=== PATIENT | male | born 1985 | race Caucasian/White ===

== ENCOUNTER → 2019-12-22 16:12 | Outpatient (CLI) | payer OTHER, SELFPAY ==
--- NOTE | ~2019-12-22 | XR_ITS ---
EXAMINATION: XR foot LT min 3V DATE: 12/22/2019 16:26 INDICATION: Left foot pain TECHNIQUE: Dorsoplantar, two oblique and lateral views of the left foot were obtained. COMPARISON: None. FINDINGS: Alignment is normal. No fracture. Mild osteoarthritis at the first metatarsophalangeal and third and fourth distal interphalangeal joints. No erosions or periosteal reaction. Small Achilles calcaneal sp ur. Soft tissues are unremarkable. No left ankle joint effusion. IMPRESSION: 1. 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 Reviewed, dictated and finalized at location A. TECHNICAL LEAD
== END ==
PROVIDERS: PCP Family Medicine; Visit Provider Physician Assistant
DX: M19.072 Primary osteoarthritis, left ankle and foot (principal)
CPT/HCPCS: 73630

== ENCOUNTER → 2020-06-05 15:00 | Outpatient (CLI) | payer OTHER, SELFPAY ==
--- NOTE | ~2020-06-05 | CT_ITS ---
EXAMINATION: CT abdomen pelvis wo con DATE: 06/05/2020 15:14 INDICATION: Right flank pain TECHNIQUE: Computed tomography (CT) of the abdomen and pelvis was performed without intravenous contr ast. The dose-length product (DLP) was 767.41 mGy-cm. Automated exposure control and iterative recons truction technique were employed. COMPARISON: 10/06/2012 FINDINGS: The lung bases are clear. The heart size is normal. The liver is diffusely low in attenuati on when compared with the spleen, consistent with hepatic steatosis. The spleen, pancreas, gallbladde r, and adrenal glands are normal. There is a 2 mm nonobstructing stone of the left kidney. No stones are present in the right kidney, ureters, or the bladder. There is no hydronephrosis or hydroureter. The appendix is normal. No pathologically enlarged abdominal or pelvic lymph nodes are identified. Th ere is no free intraperitoneal gas or evidence of bowel obstruction. IMPRESSION: 1. No CT correlate for right flank pain. No hydronephrosis or hydroureter. 2. Nonobstructing left nephrolithiasis. 3. Diffuse hepatic steatosis. Reviewed, dictated and finalized at location A.
== END ==
PROVIDERS: PCP Family Medicine; Visit Provider Physician Assistant
DX: K76.0 Fatty (change of) liver, not elsewhere classified (principal); N20.0 Calculus of kidney
CPT/HCPCS: 74176

== ENCOUNTER → 2020-12-17 11:35 | Outpatient (CLI) | payer OTHER, SELFPAY ==
--- NOTE | ~2020-12-17 | XR_ITS ---
EXAMINATION: XR chest 2V DATE: 12/17/2020 11:52 INDICATION: Anterior chest wall pain. TECHNIQUE: Frontal and lateral views of the chest were obtained. COMPARISON: Chest 2 views 11/21/2019, CT abdomen and pelvis 06/05/2020 FINDINGS: The chest demonstrates clear lungs without pneumonia, pleural effusion, or pneumothorax. Th e heart size is normal. The sternum is normal. IMPRESSION: 1. No acute cardiopulmonary disease. Reviewed, dictated and finalized at location A. OLOGY SPECIALIST
== END ==
PROVIDERS: Visit Provider Family Medicine
DX: R07.89 Other chest pain (principal)
CPT/HCPCS: 71046

== ENCOUNTER → 2021-01-25 08:22 | Outpatient (CLI) | payer OTHER, SELFPAY ==
--- NOTE | ~2021-01-25 | MM_ITS ---
MM diagnostic mammo unilat LT DATE: 01/25/2021 09:20 INDICATION: Left breast pain and swelling superiorly, extending to the axilla TECHNIQUE: Digital MLO views of each breast and cc views of left breast. COMPARISON: None FINDINGS: The breasts are almost entirely fatty. No suspicious mass, architectural distortion, malignant calcification, skin thickening or retraction. IMPRESSION: BI-RADS Category 1: Negative Reviewed, dictated and finalized at Location A. Reviewed, dictated and finalized at location A. MERY WORKER
== END ==
PROVIDERS: PCP Family Medicine; Visit Provider Nurse Practitioner Family
DX: N63.20 Unspecified lump in the left breast, unspecified quadrant (principal); N64.4 Mastodynia
CPT/HCPCS: 77065

== ENCOUNTER 2021-02-18 12:45 | Outpatient (CLI) | payer OTHER, SELFPAY ==
--- NOTE | ~2021-02-18 | US_ITS ---
EXAMINATION: US soft tissue UE LT DATE: 02/18/2021 13:19 INDICATION: Localized swelling, mass and lump at the left upper arm TECHNIQUE: Multiple grayscale and Doppler ultrasound images of the region of concern at the posterior left upper arm near the elbow were obtained. COMPARISON: None FINDINGS: There is an approximately 1.6 x 1.4 x 0.5 cm region of increased echogenicity in the superficial subc utaneous fat at the region of concern. No other abnormal masses or fluid collections identified. IMPRESSION: 1. 1.6 x 1.4 x 0.5 similar region of increased activity is seen in the subcutaneous fat which could r epresent either inflammation of normal fat or potentially a lipoma with poorly defined margins. Reviewed, dictated and finalized at location B. IMPRESSION: 1. 1.6 x 1.4 x 0.5 similar region of increased activity is seen in the subcutan eous fat which could represent either inflammation of normal fat or potentially a lipoma with poorly defined margins.
--- NOTE | ~2021-02-18 | US_ITS ---
US breast LT limited DATE: 02/18/2021 13:15 INDICATION: Breast hypertrophy, breast lump TECHNIQUE: High-resolution targeted ultrasound imaging of the left breast at area of clinical complai nt at 12:00 near nipple COMPARISON: 01/25/2021 diagnostic left mammogram FINDINGS: No suspicious mass or shadowing, cyst or other significant sonographic abnormality is ident ified at the area of complaint of left breast lump at 12:00 near the nipple. IMPRESSION: BI-RADS Category 1: Negative Reviewed, dictated and finalized at Location A. Reviewed, dictated and finalized at location A.
== END 2021-02-18 12:46 | disposition home or self-care (01) ==
PROVIDERS: PCP Family Medicine; Visit Provider Surgery
DX: N62 Hypertrophy of breast (principal); R22.32 Localized swelling, mass and lump, left upper limb
CPT/HCPCS: 76642; 76882

== ENCOUNTER 2021-05-29 15:58 | Outpatient (CLI) | payer OTHER, SELFPAY ==
--- NOTE | ~2021-05-29 | XR_ITS ---
EXAMINATION: XR abdomen/kub 1V DATE: 05/29/2021 16:26 INDICATION: Right flank pain. TECHNIQUE: A supine view of the abdomen on 2 radiographs was obtained. COMPARISON: CT abdomen and pelvis 06/05/2020 FINDINGS: There are no dilated loops of bowel. There is a 2 mm stone in left kidney. IMPRESSION: 1. 2 mm stone in left kidney. Reviewed, dictated and finalized at location A.
--- NOTE | ~2021-05-29 | XR_ITS ---
EXAMINATION: XR thoracic spine 3V EXAM DATE: 05/29/2021 16:26 INDICATION: Right flank pain. TECHNIQUE: Frontal and lateral projections of the thoracic spine as well as lateral swimmers projecti on of the upper thoracic spine for interpretation. There is no prior study for comparison. FINDINGS: There are no bony erosions identified. The vertebral bodies are aligned in the AP dimensio n. Vertebral body and disc heights are well-maintained. Paraspinal soft tissue is unremarkable. There are no osteoblastic or osteolytic lesions identified. IMPRESSION: Unremarkable XR thoracic spine 3V exam. Reviewed, dictated and finalized at location B.
[2021-05-29 17:00] LABS: Basophils Percent Auto 0.5 % (0.2-1.2); Eosinophils Absolute Auto 0.1 K/mm3 (0-0.3); Eosinophils Percent Auto 1.7 % (0-4.4); Hematocrit 39.5 % (42.0-52.0); Hemoglobin 12.7 g/dL (14.0-18.0); Immature Granulocyte Absolute 0.02 K/mm3 (0.00-0.031); Immature Granulocyte Percent A 0.3 % (0-0.5); Lymphocytes Absolute Auto 1.95 K/mm3 (0.9-3.2); Mean Corpuscular HGB Conc 32.2 g/dl (32-36); Mean Corpuscular Hemoglobin 28.8 pg (26-34); Mean Corpuscular Volume 89.6 fl (80-100); Mean Platelet Volume 9.7 fl (7.4-10.4); Monocytes Absolute Auto 0.8 K/mm3 (0.1-0.6); Monocytes Percent Auto 10.5 % (2.6-8.5); Neutrophils Absolute Auto 4.6 K/mm3 (1.3-6.7); Platelet Count Result 221 k/mm3 (150-375); Red Blood Count 4.41 M/mm3 (4.6-6.20); Red Cell Distribution Width 11.7 % (11.5-14.5); White Blood Count 7.5 K/mm3 (4.5-10.0)
[2021-05-29 17:11] LABS: Alanine Aminotransferase 57 U/L (4-50); Albumin Level 4.6 g/dL (3.5-5.1); Alkaline Phosphatase 78 U/L (38-126); Anion Gap 7 mmol/L (8-16); Aspartate Amino Transferase 32 U/L (17-59); Bilirubin,Total 0.5 mg/dL (0.2-1.3); Blood Urea Nitrogen 16 mg/dL (9-20); Calcium 9.4 mg/dL (8.4-10.2); Carbon Dioxide 27 mmol/L (22-30); Chloride 106 mmol/L (98-107); Estimated Glomerular Filt Rate > 60; Glucose 87 mg/dL (75-110); Sodium 140 mmol/L (137-145)
== END 2021-05-29 15:59 | disposition home or self-care (01) ==
LOC: ANHIMG 16:01
PROVIDERS: PCP Family Medicine; Visit Provider Nurse Practitioner Family
DX: R10.9 Unspecified abdominal pain (principal); M54.6 Pain in thoracic spine; N20.0 Calculus of kidney
CPT/HCPCS: 36415; 72072; 74018; 80053; 85025

== ENCOUNTER 2021-11-04 01:15 | Day surgery (SDC) | payer OTHER, SELFPAY ==
[2021-10-18 14:47] VITALS: BMI 26.5
--- NOTE | 2021-11-01 14:30 | PM.HPGS ---
History of Present Illness History of Present Illness Consent: Risks, benefits, and alternatives have been discussed and questions answered. Patient agrees to proceed with procedure. Chief complaint: Rectal pain, melena Narrative: Elmo Cochran is a 36 year old male who has had rectal and anal pain for the past month. He also has seen blood in the stools. He gets some relief with preparation H and tucks pads. using a suppository Provides him temporary relief for few days. often his symptoms will begin after a bowel movement and will leave him in discomfort for a few days. He does not have pain on passage of the stool. Review of Systems Review of Systems: All systems reviewed & are unremarkable except as noted in HPI and below PMFSH Past Medical History Medical History GERD (gastroesophageal reflux disease) Hepatic steatosis Hx MRSA infection Surgical History Surgical History History of incision and drainage right knee Family History Family History Father Skin cancer Acute myocardial infarction Mother Factor V inhibitor disorder Diabetes mellitus Skin cancer Social History Social History Smoking status: Never smoker Second hand tobacco smoke exposure: No Alcohol intake: never Substance use: never Substance use type: does not use Living arrangements: with family Gender identity (if verbalized by the patient): Male Sexual Orientation (if Verbalized by the Patient): Straight or Heterosexual Spiritual care concerns: No Meds Home Medications and Allergies Home Medications Medication Instructions Recorded Confirmed Type omeprazole 20 mg PO DAILY 10/18/21 11/04/21 History Allergies Allergy/AdvReac Type Severity Reaction Status Date / Time menthol Allergy Unknown Hives Verified 11/04/21 06:32 Exam Resp: Auscultation: clear to auscultation bilaterally Cardio: Rate: regular rate Rhythm: regular rhythm GI: GI Palp: Yes Soft to palpation and No Tenderness to palpation present (GI) Assessment and Plan Assessment and plan (1) Rectal bleeding: Code(s): K62.5 - Hemorrhage of anus and rectum Status: Acute Assessment and Plan: Colonoscopy with possible biopsy or polypectomy or cautery or injection of substances.
--- NOTE | 2021-11-01 18:42 | WPDANESEPPF ---
Anes - Initial Pre Proc Eval Procedure: Operation Date: 11/04/21 08:00 Proposed Procedures p Colonoscopy - Bright Meyer MD Date/Time: 11/01/21 18:42 Surgeon: Bright Meyer MD Pre Op Diagnosis: Rectal pain, melena Patient Data Age: 36 Gender: M Height: 1.78 m Weight: 84 kg Allergies Allergy/AdvReac Type Severity Reaction Status Date / Time menthol Allergy Unknown Hives Verified 11/04/21 06:32 Home Medications Medication Instructions Recorded Confirmed Type omeprazole 20 mg PO DAILY 10/18/21 11/04/21 History Patient hx anesthesia problems: none Family hx anesthesia problems: none Results Review: All pre-operative results and documents have been reviewed as part of the pre-operative evaluation. [facility] Past Medical History Medical History GERD (gastroesophageal reflux disease) Hepatic steatosis Hx MRSA infection Surgical History Surgical History History of incision and drainage right knee Family History Family History Father Skin cancer Acute myocardial infarction Mother Factor V inhibitor disorder Diabetes mellitus Skin cancer Social History Social History Smoking status: Never smoker Second hand tobacco smoke exposure: No Alcohol intake: never Substance use: never Substance use type: does not use Living arrangements: with family Gender identity (if verbalized by the patient): Male Sexual Orientation (if Verbalized by the Patient): Straight or Heterosexual Spiritual care concerns: No Anes - Eval Final PreProcedure Day of Procedure 11/01/21 18:42 Patient weight: overweight Heart: regular rate and rhythm Lungs: clear to auscultation and normal air movement Airway: Mallampati scale class II Neurological: alert and oriented Last oral intake: >/= 8 hours ASA classification: III Emergent: no Anesthetic plan: proceed Anesthesia type and monitoring: general GIVS and standard monitoring Results Review: All pre-operative results and documents have been reviewed as part of the pre-operative evaluation. Informed Consent: The patient's anesthetic plan and its attendant risks and benefits were discussed with the patient/family/POA. Questions were solicited and answers provided to the satisfaction of the patient/family/POA.
[2021-11-04 06:33] VITALS: BP 108/78; PULSE 81; RESP 18; TEMP 36.6; O2SAT 99
[2021-11-04] MEDS: LACTATED RINGERS 1,000 ML 150 ML IV CONT (06:37)
[2021-11-04 08:14] VITALS: BP 113/73; PULSE 78; RESP 14; O2SAT 96
[2021-11-04 08:24] VITALS: BP 107/69; PULSE 73; RESP 14; O2SAT 98
[2021-11-04 08:34] VITALS: BP 111/76; PULSE 62; RESP 14; O2SAT 98
== END 2021-11-04 08:41 | disposition home or self-care (01) ==
PROVIDERS: PCP Family Medicine; Visit Provider Internal Medicine Gastroenterology
PROC: 0DJD8ZZ Inspection of Lower Intestinal Tract, Via Natural or Artificial Opening Endoscopic (ICD-10-PCS; CPT 45378; principal; 2021-11-04 08:00)
DX: K92.1 Melena (principal); K21.9 Gastro-esophageal reflux disease without esophagitis; D12.3 Benign neoplasm of transverse colon
CPT/HCPCS: 45385; 45380; 88305; J2704; J7120

== ENCOUNTER 2022-06-26 13:56 | Outpatient (CLI) | payer OTHER, SELFPAY ==
--- NOTE | ~2022-06-26 | CT_ITS ---
EXAMINATION: CT soft tissue neck w con DATE: 06/26/2022 14:23 INDICATION: Left neck mass. TECHNIQUE: Computed tomography (CT) of the neck was performed with 75 mL Omnipaque-350 intravenous co ntrast. Automated exposure control and iterative reconstruction technique were employed. The dose-vanessa gth product was 557.79 mGy-cm. COMPARISON: None FINDINGS: There is a skin marker at left lateral aspect of the neck. There are no pathologically enla rged lymph nodes. The cervical carotid arteries are normal. There is mild mucosal thickening in the p aranasal sinuses. The mastoid air cells are normal. The orbits are normal. There is mild cervical spo ndylosis. IMPRESSION: 1. No abnormal neck mass or lymphadenopathy. Reviewed, dictated and finalized at location A.
== END 2022-06-26 13:57 | disposition home or self-care (01) ==
PROVIDERS: PCP Family Medicine; Visit Provider Family Medicine
DX: R22.1 Localized swelling, mass and lump, neck (principal)
CPT/HCPCS: 70491; Q9967

== ENCOUNTER 2022-09-23 16:49 | Outpatient (CLI) | payer OTHER, SELFPAY ==
--- NOTE | ~2022-09-23 | XR_ITS ---
EXAMINATION: XR cervical spine min 6V DATE: 09/23/2022 17:15 INDICATION: Neck pain. TECHNIQUE: 6 views of cervical spine were obtained. COMPARISON: CT neck 06/26/2022 FINDINGS: There is mild kyphosis of lower cervical spine. Vertebral body heights are normal. Interver tebral disc heights are normal. There is mild bilateral uncovertebral joint osteoarthritis at C5-C6 a nd C6-C7. There is multilevel mild facet joint osteoarthritis. No neural foraminal stenosis or centra l canal stenosis. No prevertebral soft tissue swelling. IMPRESSION: 1. Mild cervical spondylosis. Reviewed, dictated and finalized at location A. OTYPE MACHINIST
== END 2022-09-23 16:50 | disposition home or self-care (01) ==
PROVIDERS: PCP Family Medicine; Visit Provider Physician Assistant
DX: M54.2 Cervicalgia (principal); M43.02 Spondylolysis, cervical region
CPT/HCPCS: 72052

== ENCOUNTER 2023-01-27 12:27 | Outpatient (CLI) | payer OTHER, SELFPAY ==
--- NOTE | ~2023-01-27 | US_ITS ---
EXAMINATION: US scrotum doppler DATE: 01/27/2023 13:22 INDICATION: N50.812 - Left testicular pain . TECHNIQUE: Grayscale and Doppler ultrasound images of the testes were obtained. COMPARISON: None.. FINDINGS: The right testis measures 3.1 x 3.1 x 1.9 cm. The left testis measures 3.8 x 2.6 x 1.8 cm. No testicular mass. There is normal vascular flow to both testes. The left epididymis contains a 1 cm hypoechoic, avascular area which may represent an epididymal cyst. The right epididymis is normal wi th normal vascular flow. Small left hydrocele. No varicoceles. IMPRESSION: Small left epididymal cyst. Small left hydrocele. Otherwise normal scrotal ultrasound findings. Reviewed, dictated and finalized at location K. IMPRESSION: Small left epididymal cyst. Small left hydrocele. Otherwise normal scrotal ultr asound findings.
== END 2023-01-27 12:28 | disposition home or self-care (01) ==
PROVIDERS: PCP Family Medicine; Visit Provider Physician Assistant
DX: N50.89 Other specified disorders of the male genital organs (principal); N50.812 Left testicular pain; N50.3 Cyst of epididymis; N43.3 Hydrocele, unspecified
CPT/HCPCS: 76870; 93976

== ENCOUNTER 2023-09-15 01:27 | Day surgery (SDC) | payer OTHER, SELFPAY ==
--- NOTE | 2023-09-07 17:03 | PC.NURSE ---
Report to the Outpatient Waiting Room, entrance under the green pavilion located off [facility], at time 0600 on date 09/15/23. Planned Procedure Time: 0730. Time changes happen often and if your time is changed the preop area will call you the afternoon before. - You and your visitor will be asked to self-screen and do not enter if you have any COVID symptoms. - A mask is optional within the hospital at this time. Patients may have clear liquids (water, carbonated beverages, clear teas, apple juice) until 3 hours prior to surgery with a maximum of 20 ounces. - No food from midnight until time of surgery - Infants may have breast milk until 4 hours before surgery, formula 6 hours prior to surgery. - Children will be allowed to drink immediately following surgery. If applicable, please bring a bottle or sippy cup to assist with drinking. Juice, water, soda, and popsicles are readily available. For infants on formula, please bring formula the day of surgery. Pacifiers are allowed. Take the following medications with a SIP of water the morning of surgery: NONE DO NOT STOP ANY OF YOUR OTHER PRESCRIPTION MEDICATIONS PRIOR TO SURGERY ?EXCEPT THE FOLLOWING Medications to discontinue per physician OMPERAZOLE Date to take last dose 09/14/23 Please no make-up, nail yi, hairspray, perfume, deodorant, or body powder the day of surgery. No jewelry (including any body piercings) or valuables the day of surgery, leave them at home. Please take a shower or bath the night before, or the morning of, surgery with an antibacterial soap. Wear comfortable, loose fitting clothing. Children are encouraged to wear pajamas. - Jewelry must be removed prior to entering the operating room. Rings and piercings that are not removed may be cut off. - The hospital will not accept responsibility for valuables. - Please leave all valuables, including medications, at home the day of surgery. If you are going home after surgery, a licensed garbage collector driver must drive you home. - NO public transportation without another adult if you receive anesthesia. - We recommend that an adult stay with you for 24 hours following discharge. - We also recommend that you do not drive, make important decision, drink alcoholic beverages, or take any drugs that were not prescribed by your health care provider for at least 24 hours after your discharge time. For Pediatric surgeries, we recommend two adults accompany the child home. Follow any additional instructions given to you from your surgeon. If you or anyone in your household have experienced Covid symptoms in the past week, please notify your surgeon or the nurse liaison at the phone number below for possible testing. Telephone instructions given to PATIENT- REX LARA and asked if any additional questions and then verbalized understanding. Patient advised to call surgeon office or pre surgery nurse liaison [phone] if any additional questions.
[2023-09-07 17:09] VITALS: BMI 25.9
--- NOTE | 2023-09-14 17:19 | PM.IMHP ---
H&P: HPI History of Present Illness Date/Time: 09/14/23 17:19 Chief Complaint: recurrent tonsillitis adenoid hypertrophy tonsil stones halitosis snoring Narrative: planned procedure Review of Systems Review of Systems: All systems reviewed & are unremarkable except as noted in HPI and below PMFSH Past Medical History Medical History GERD (gastroesophageal reflux disease) Hepatic steatosis Hx MRSA infection Surgical History Surgical History History of incision and drainage right knee Family History Family History Father Skin cancer Acute myocardial infarction Mother Factor V inhibitor disorder Diabetes mellitus Skin cancer Social History Social History (Updated 08/10/23 @ 12:10 by Rosa Denson CMA) Smoking status: Never smoker Second hand tobacco smoke exposure: No Alcohol intake: never Substance use: never Substance use type: does not use Lack of Transportation: No Lack of Food: Never True Current Housing: I Have Housing Concerned About Future Housing: No Difficulty Paying Gas/Electric Bills: No Difficulty Paying for Meds: No Currently Unemployed: No Education: High School Diploma/GED Difficulty w/ Childcare or Family Care: No Living arrangements: with family Occupation/Education: occupation Gender identity (if verbalized by the patient): Male Sexual Orientation (if Verbalized by the Patient): Straight or Heterosexual Spiritual care concerns: No Meds Home Medications and Allergies Home Medications Medication Instructions Recorded Confirmed Type omeprazole 20 mg capsule,delayed 20 mg PO DAILY 10/18/21 09/07/23 History release Allergies Allergy/AdvReac Type Severity Reaction Status Date / Time menthol Allergy Unknown Hives Verified 09/07/23 16:54 Exam Narrative: chronic appearing tonsils tonsil stones adenoid hypertrophy Assessment and Plan Assessment and plan (1) Tonsil stone: Code(s): J35.8 - Other chronic diseases of tonsils and adenoids Status: Acute Assessment and Plan: ?Plan OR tonsillectomy adenoidectomy risks were discussed including bleeding infection damage to surrounding structures damage to any structure above the clavicles by myself damage to any structure during the induction and maintenance of anesthesia including vocal cord paralysis.? Postoperative bleeding 3-5% risk inherent risk of narcotic use the need for time off work time off school.? Change in swallow change in taste which could be permanent.? Patient voiced understanding of these risks and agreed. (2) Adenoid hypertrophy: Code(s): J35.2 - Hypertrophy of adenoids Status: Acute (3) Recurrent tonsillitis: Code(s): J03.91 - Acute recurrent tonsillitis, unspecified Status: Acute
[2023-09-15] VITALS (14 sets, daily range): BP systolic 111–138; BP diastolic 63–93; PULSE 56–102; RESP 12–24; TEMP 35.9–36.7; O2SAT 96–100
[2023-09-15] MEDS: ACETAMINOPHEN 500 MG TABLET 1000 MG PO (07:00)
[2023-09-15] MEDS: LACTATED RINGERS 1,000 ML 30 ML IV CONT ×2 (07:00→10:28)
--- NOTE | 2023-09-15 07:16 | WPDHPUPDATE1 ---
History and Physical Update Update Date/Time: 09/15/23 07:16 History and Physical has been reviewed, including an updated exam of the patient. There are NO changes in the patient's condition. Risks, benefits, and alternatives have been discussed and questions answered. Patient agrees to proceed with procedure.
[2023-09-15 07:19] LABS: Anion Gap 3 mmol/L (8-16); Blood Urea Nitrogen 14 mg/dL (9-20); Calcium 9.3 mg/dL (8.4-10.2); Carbon Dioxide 31 mmol/L (22-30); Chloride 107 mmol/L (98-107); Estimated CRCL calculation 107 ml/min; Estimated Glomerular Filt Rate > 60; Glucose 100 mg/dL (65-110); Potassium 4.3 mmol/L (3.4-5.0); Sodium 141 mmol/L (137-145)
[2023-09-15 07:31] LABS: INR 0.9; Prothrombin Time 12.7 Seconds (11.1-14.7)
[2023-09-15 07:32] LABS: Partial Thromboplastin Time 26.9 SECONDS (22.3-36.8)
--- NOTE | 2023-09-15 08:46 | WPDANESEPPF ---
Anes - Initial Pre Proc Eval Procedure: Operation Date: 09/15/23 08:15 Proposed Procedures p Tonsillectomy And Adenoidectomy - Xavier Caputo MD Date/Time: 09/15/23 08:46 Surgeon: Xavier Caputo MD Pre Op Diagnosis: tonsil stones,snoring,adenoid hypertrophy, tonsill Patient Data Age: 38 Gender: M Height: 1.75 m Weight: 79.32 kg Last Vital Signs Temp 36.3 C L 09/15/23 07:00 Pulse 60 09/15/23 07:00 Resp 14 09/15/23 07:00 BP 113/63 09/15/23 07:00 Pulse Ox 100 09/15/23 07:00 O2 Del Method Room Air 09/15/23 07:00 Allergies Allergy/AdvReac Type Severity Reaction Status Date / Time menthol Allergy Unknown Hives Verified 09/15/23 08:05 Home Medications Medication Instructions Recorded Confirmed Type omeprazole 20 mg capsule,delayed 20 mg PO DAILY 10/18/21 09/07/23 History release Laboratory Tests 09/15/23 07:02 PT 12.7 Seconds (11.1-14.7) INR 0.9 APTT 26.9 SECONDS (22.3-36.8) Sodium 141 mmol/L (137-145) Potassium 4.3 mmol/L (3.4-5.0) Chloride 107 mmol/L (98-107) Carbon Dioxide 31 H mmol/L (22-30) Anion Gap 3 L mmol/L (8-16) BUN 14 mg/dL (9-20) Creatinine 0.80 mg/dL (0.7-1.3) Estim Creat Clear Calc 107 ml/min Estimated GFR > 60 (59 - ) Glucose 100 mg/dL (65-110) Calcium 9.3 mg/dL (8.4-10.2) Patient hx anesthesia problems: none Family hx anesthesia problems: none Results Review: All pre-operative results and documents have been reviewed as part of the pre-operative evaluation. [facility] Past Medical History Medical History GERD (gastroesophageal reflux disease) Hepatic steatosis Hx MRSA infection Surgical History Surgical History History of incision and drainage right knee Family History Family History Father Skin cancer Acute myocardial infarction Mother Factor V inhibitor disorder Diabetes mellitus Skin cancer Social History Social History Smoking status: Never smoker Second hand tobacco smoke exposure: No Alcohol intake: never Substance use: never Substance use type: does not use Lack of Transportation: No Lack of Food: Never True Current Housing: I Have Housing Concerned About Future Housing: No Difficulty Paying Gas/Electric Bills: No Difficulty Paying for Meds: No Currently Unemployed: No Education: High School Diploma/GED Difficulty w/ Childcare or Family Care: No Living arrangements: with family Occupation/Education: occupation Gender identity (if verbalized by the patient): Male Sexual Orientation (if Verbalized by the Patient): Straight or Heterosexual Spiritual care concerns: No Anes - Eval Final PreProcedure Day of Procedure 09/15/23 08:46 Patient weight: normal Heart: regular rate and rhythm Lungs: clear to auscultation Airway: Mallampati scale class 1 Neurological: alert and oriented Last oral intake: >/= 8 hours ASA classification: II Emergent: no Anesthetic plan: proceed Anesthesia type and monitoring: general ETT and standard monitoring Results Review: All pre-operative results and documents have been reviewed as part of the pre-operative evaluation. Informed Consent: The patient's anesthetic plan and its attendant risks and benefits were discussed with the patient/family/POA. Questions were solicited and answers provided to the satisfaction of the patient/family/POA.
--- NOTE | 2023-09-15 09:58 | W.PM.PROC2 ---
Procedure Note - Detailed Date of Procedure 09/15/23 Pre-op Diagnosis tonsil stones, tonsillitis recurrent Post-op Diagnosis Same Procedure Performed Tonsillectomy Surgeon Xavier Caputo MD Anesthesia General Indications See above Findings Really scarred and chronic appearing tonsils lots stones. Adenoids essentially absent. Minimal bleeding. Description of Procedure Patient identified consent verified preop. Patient brought to the operating room. Time-out performed. General anesthesia induced endotracheal tube secured airway. Patient prepped draped positioned procedure confirm 2nd time-out performed. McIvor mouth gag inserted into very small mouth opened tonsils described above. They were removed bilaterally in the extracapsular plane using Bovie electrocautery setting of 8. Any bleeding was controlled Bovie suction electrocautery setting of 10 and bipolar to setting of 10. In between tonsils the McIvor mouth gag was lowered to allow blood flow return to the tongue. After the tonsillectomies were completed McIvor mouth gag was lowered reopened reveal no further bleeding. Red rubber catheter was then inserted adenoid pad adenoid pad viewed non-existent. Red rubber catheters removed. The tonsillar fossa were again examined no bleeding. McIvor mouth gag removed. The patient given Anesthesiology. I performed all dictated portions procedure. No complications. Patient is taken to PACU. Blood loss 2 cc. Estimated Blood Loss 2 Drains No Packing No Pathology Yes Complications No immediate complications Condition Stable Disposition PACU [facility] Billing Surgery - Charge Forward: Surgery Billing
[2023-09-15] MEDS: ONDANSETRON INJ 4 MG/2 ML VIAL IV PUSH (10:25)
[2023-09-15] MEDS: PROMETHAZINE HCL 25 MG/ML AMPUL 12.5 MG IV PUSH (10:49)
[2023-09-15] MEDS: oxyCODONE (*CRX) 5 MG/5 ML ORAL SOLN IR PO (13:16)
== END 2023-09-15 13:42 | disposition home or self-care (01) ==
PROVIDERS: Anesthesiology; PCP Family Medicine; Visit Provider Otolaryngology
PROC: (CPT 42826; principal; 2023-09-15 08:15)
DX: J35.01 Chronic tonsillitis (principal); A42.89 Other forms of actinomycosis; J35.8 Other chronic diseases of tonsils and adenoids; K21.9 Gastro-esophageal reflux disease without esophagitis; R06.83 Snoring
CPT/HCPCS: 42826; 36415; 80048; 85610; 85730; 88304; A9270; J0330; J1100; J2250; J2405; J2550; J2704; J3010; J7120

== ENCOUNTER 2023-11-06 13:31 | Outpatient (CLI) | payer OTHER, SELFPAY ==
--- NOTE | ~2023-11-06 | XR_ITS ---
XR chest 2V DATE: 11/06/2023 13:39 INDICATION: Cough TECHNIQUE: 2 views COMPARISON: None FINDINGS: Normal heart size. No hilar or mediastinal enlargement. No pulmonary infiltrate or consolidation, p ulmonary vascular congestion or pleural effusion or pneumothorax. IMPRESSION: Negative Reviewed, dictated and finalized at location A. ING OPERATOR IMPRESSION: Negative
== END 2023-11-06 13:32 ==
PROVIDERS: PCP Physician Assistant; Visit Provider Physician Assistant
DX: R05.9 Cough, unspecified (principal)
CPT/HCPCS: 71046

== ENCOUNTER 2024-02-19 17:03 | Outpatient (CLI) | payer OTHER, SELFPAY ==
--- NOTE | ~2024-02-19 | XR_ITS ---
EXAM: XR shoulder RT min 2V DATE: 02/19/2024 17:28 HISTORY: M25.511 - Pain in right shoulder CHRONIC X 1 YR AFTER . COMPARISON: None available. FINDINGS: Normal mineralization. No fracture or dislocation. No lytic or blastic lesion. Joint space s are maintained. No erosion or periosteal change. Soft tissues within normal limits. IMPRESSION: Normal right shoulder radiograph findings. Reviewed, dictated and finalized at location K.
== END 2024-02-19 17:04 | disposition home or self-care (01) ==
LOC: ANHIMG 17:06
PROVIDERS: PCP Family Medicine; Visit Provider Physician Assistant
DX: M25.511 Pain in right shoulder (principal)
CPT/HCPCS: 73030

== ENCOUNTER 2024-02-22 10:53 | Outpatient (CLI) | payer OTHER, SELFPAY ==
--- NOTE | ~2024-02-22 | US_ITS ---
EXAMINATION: US soft tissue upper back DATE: 02/22/2024 12:22 INDICATION: Disorder of the skin and subcutaneous tissue. Lump on back. TECHNIQUE: Multiple grayscale and Doppler ultrasound images of the upper back were obtained. COMPARISON: None FINDINGS: In the upper back, there is a 10 x 5 x 7 mm hypoechoic subcutaneous mass without internal v ascular flow. IMPRESSION: 1. 10 mm subcutaneous mass in the upper back. This finding is most likely a sebaceous cyst. Benign or malignant neoplasm is not excluded. Reviewed, dictated and finalized at location A. IMPRESSION: 1. 10 mm subcutaneous mass in the upper back. This finding is most likely a mala aceous cyst. Benign or malignant neoplasm is not excluded.
== END 2024-02-22 10:54 | disposition home or self-care (01) ==
PROVIDERS: PCP Family Medicine; Visit Provider Physician Assistant
DX: R22.2 Localized swelling, mass and lump, trunk (principal)
CPT/HCPCS: 76604

== ENCOUNTER 2024-02-29 15:56 | Outpatient (CLI) | payer OTHER, SELFPAY ==
--- NOTE | ~2024-02-29 | CT_ITS ---
EXAMINATION: CT abdomen pelvis wo con DATE: 02/29/2024 16:17 INDICATION: Unspecified abdominal pain. TECHNIQUE: Computed tomography (CT) of the abdomen and pelvis was performed without intravenous contr ast. Automated exposure control and iterative reconstruction technique were employed. The dose-length product was 398.16 mGy-cm. COMPARISON: CT abdomen and pelvis 06/05/2020 FINDINGS: The visualized portions of the lung bases are clear without pneumonia or pleural effusion. The heart size is normal. No pericardial effusion. The liver, gallbladder, spleen, pancreas, adrenal glands, and right kidney are normal. There is a 3 mm stone in left kidney. There are no dilated loops of bowel. The appendix is normal. There are no pathologically enlarged lymph nodes. There is no free intraperitoneal fluid. There is a left inguinal hernia containing fat. There is mild lumbar spondylo sis. IMPRESSION: 1. Left inguinal hernia containing fat. Reviewed, dictated and finalized at location E.
== END 2024-02-29 15:57 | disposition home or self-care (01) ==
LOC: ANHIMG 15:57
PROVIDERS: PCP Family Medicine; Visit Provider Physician Assistant Medical
DX: K40.90 Unilateral inguinal hernia, without obstruction or gangrene, not specified as recurrent (principal); R31.9 Hematuria, unspecified
CPT/HCPCS: 74176

== ENCOUNTER 2024-04-14 00:39 | Day surgery (SDC) | payer OTHER, SELFPAY ==
[2024-04-05 13:01] VITALS: BMI 24.7
--- NOTE | 2024-04-05 13:05 | PC.NURSE ---
Report to the Outpatient Waiting Room, entrance under the green pavilion located off [facility], at time _1000_ on date _[id number]_. Planned Procedure Time: _1200_. Time changes happen often and if your time is changed the preop area will call you the afternoon before. - You and your visitor will be asked to self-screen and do not enter if you have any COVID symptoms. - A mask is optional within the hospital at this time. Patients may have clear liquids (water, carbonated beverages, clear teas, apple juice) until 3 hours prior to surgery with a maximum of 20 ounces. - No food from midnight until time of surgery Take the following medications with a SIP of water the morning of surgery: ___None DO NOT STOP ANY OF YOUR OTHER PRESCRIPTION MEDICATIONS PRIOR TO SURGERY ?EXCEPT THE FOLLOWING Medications to discontinue per physician None Date to take last dose Please no make-up, nail sammarinese, hairspray, perfume, deodorant, or body powder the day of surgery. No jewelry (including any body piercings) or valuables the day of surgery, leave them at home. Please take a shower or bath the night before, or the morning of, surgery with an antibacterial soap. Wear comfortable, loose fitting clothing. - Jewelry must be removed prior to entering the operating room. Rings and piercings that are not removed may be cut off. - The hospital will not accept responsibility for valuables. - Please leave all valuables, including medications, at home the day of surgery. If you are going home after surgery, a licensed fork truck driver must drive you home. - NO public transportation without another adult if you receive anesthesia. - We recommend that an adult stay with you for 24 hours following discharge. - We also recommend that you do not drive, make important decision, drink alcoholic beverages, or take any drugs that were not prescribed by your health care provider for at least 24 hours after your discharge time. Follow any additional instructions given to you from your surgeon. If you or anyone in your household have experienced Covid symptoms in the past week, please notify your surgeon or the nurse liaison at the phone number below for possible testing. Telephone instructions given to __Michael__and asked if any additional questions and then verbalized understanding. Patient advised to call surgeon office or pre surgery nurse liaison [phone] if any additional questions.
[2024-04-14 10:05] VITALS: BP 99/66; PULSE 70; RESP 18; TEMP 36.4; O2SAT 97
[2024-04-14 10:20] VITALS: BMI 25.0
[2024-04-14] MEDS: LACTATED RINGERS 1,000 ML 30 ML IV CONT (10:30)
--- NOTE | 2024-04-14 11:07 | P.PNAN_ITS ---
Anes - Initial Pre Proc Eval Procedure: Operation Date: 04/14/24 12:00 Proposed Procedures p Excision Skin Cyst of Back - Mario Reynolds MD Date/Time: 04/14/24 11:07 Surgeon: Mario Reynolds MD Pre Op Diagnosis: Skin Cyst of Back 1.5 cm Patient Data Age: 39 Gender: M Height: 1.75 m Weight: 76.7 kg Last Vital Signs Temp 97.6 F 04/14/24 10:05 Pulse 70 04/14/24 10:05 Resp 18 04/14/24 10:05 BP 99/66 L 04/14/24 10:05 Pulse Ox 97 04/14/24 10:05 O2 Del Method Room Air 04/14/24 10:05 Allergies Allergy/AdvReac Type Severity Reaction Status Date / Time menthol Allergy Unknown Hives Verified 04/14/24 10:38 Home Medications Medication Instructions Recorded Confirmed Type omeprazole 20 mg capsule,delayed 20 mg PO DAILY #90 caps 02/24/24 04/13/24 Rx release Patient hx anesthesia problems: none Family hx anesthesia problems: none Results Review: All pre-operative results and documents have been reviewed as part of the pre- operative evaluation. [facility] Past Medical History Medical History GERD (gastroesophageal reflux disease) Hepatic steatosis Hx MRSA infection Surgical History Surgical History History of incision and drainage right knee History of tonsillectomy Family History Family History Father Skin cancer Acute myocardial infarction Mother Factor V inhibitor disorder Diabetes mellitus Skin cancer Social History Social History Smoking status: Never smoker Second hand tobacco smoke exposure: No Alcohol intake: never Substance use: never Substance use type: does not use Do You Feel Safe in your Home?: Yes Lack of Transportation: No Lack of Food: Never True Current Housing: I Have Housing Concerned About Future Housing: No Difficulty Paying Gas/Electric Bills: No Difficulty Paying for Meds: No Currently Unemployed: No Education: High School Diploma/GED Difficulty w/ Childcare or Family Care: No Living arrangements: with family Occupation/Education: occupation Gender identity (if verbalized by the patient): Male Sexual Orientation (if Verbalized by the Patient): Straight or Heterosexual Spiritual care concerns: No Anes - Eval Final PreProcedure Day of Procedure 04/14/24 11:07 Patient weight: normal Heart: regular rate and rhythm Lungs: clear to auscultation Airway: Mallampati scale class II Neurological: alert and oriented Last oral intake: >/= 8 hours ASA classification: II Emergent: no Anesthetic plan: proceed Anesthesia type and monitoring: general GIVS and standard monitoring Results Review: All pre-operative results and documents have been reviewed as part of the pre- operative evaluation. Informed Consent: The patient's anesthetic plan and its attendant risks and benefits were discussed with the patient/family/POA. Questions were solicited and answers provided to the satisfaction of the patient/family/POA.
--- NOTE | 2024-04-14 12:02 | WPDHPUPDATE1 ---
History and Physical Update Update Date/Time: 04/14/24 12:02 History and Physical has been reviewed, including an updated exam of the patient. There are NO changes in the patient's condition. Risks, benefits, and alternatives have been discussed and questions answered. Patient agrees to proceed with procedure.
[2024-04-14] MEDS: ceFAZolin 2 GM/D5W 50 ML 2 GM/50 ML BAG IVPB (12:11)
[2024-04-14] MEDS: KETOROLAC 30 MG/ML VIAL (*BKC) IV PUSH (12:12)
[2024-04-14] MEDS: BUPIVACAINE/EPINEPHRINE 0.5% 10 ML VIAL 20 ML INFILTRATE (12:31)
--- NOTE | 2024-04-14 12:50 | P.OP_ITS ---
Procedure Note - Detailed Date of Procedure 04/14/24 Pre-op Diagnosis Skin Cyst of Back 1.5 cm Post-op Diagnosis Same Procedure Performed Excision 1.5 cm skin cyst of the back with 1 mm margins or 1.7 cm excision; 6 cm layered closure Surgeon Mario Reynolds MD Senior Control Systems Engineer Wendy Guardado [facility] Anesthesia MAC and Local Indications Patient has had a small nodule in the left upper back for at least a year. It has been getting larger and is tender if he leans back on it. He also notices some itching associated with the nodule. He was seen in the office and found to have a 1.5 cm inclusion cyst of the back. He is taken to surgery now for excision. Findings Inclusion cyst Description of Procedure Patient was checked in the preoperative holding area. He was then taken to surgery and placed in a prone position. IV sedation was administered. Prep and drape was carried out. The proposed transversely oriented ellipse was drawn on the skin. Local was infiltrated into the area of the anticipated excision as well as deep to the cyst. Incision was made and the skin was divided on both the lateral and medial ends of the lips. We then continued sharp dissection and carefully excise the cyst in the midportion where a 1 mm margin of the cyst was obtained. The cyst was excised without entering it. It was measured with findings as above. The wound was made hemostatic with the cautery. It was closed in layers with a deep layer of 4-0 Vicryl interrupted suture. Some 4-0 Vicryl interrupted subcuticular skin sutures were placed to loosely approximate the skin. Finally the skin was closed with a running 4-0 Monocryl skin suture. Wound was dressed with Exofin surgical adhesive. The patient was awakened and taken to outpatient surgery in good condition. Sponge needle counts were correct x2. Estimated Blood Loss -5 Drains No Packing No Pathology Yes (Skin cyst of the back) Complications No immediate complications Condition Stable Disposition Same day [facility] Billing Surgery - Charge Forward: Surgery Billing (Excision 1.5 cm skin cyst of the back with 1 mm margins, 1.7 cm excision; 6 cm layered closure.)
[2024-04-14 12:53] VITALS: BP 107/64; PULSE 67; RESP 18; O2SAT 99
[2024-04-14 13:25] VITALS: BP 101/63; PULSE 53; RESP 16; O2SAT 100
[2024-04-14 13:55] VITALS: BP 111/72; PULSE 47; RESP 16
== END 2024-04-14 13:58 | disposition home or self-care (01) ==
PROVIDERS: PCP Family Medicine; Visit Provider Surgery
PROC: (CPT 11402; principal; 2024-04-14 12:00)
DX: L72.0 Epidermal cyst (principal); K21.9 Gastro-esophageal reflux disease without esophagitis; Z98.890 Other specified postprocedural states; Z84.0 Family history of diseases of the skin and subcutaneous tissue; Z82.49 Family history of ischemic heart disease and other diseases of the circulatory system
CPT/HCPCS: 11402; 12032; 88305; J0690; J1100; J1885; J2250; J2405; J2704; J3010; J7120

== ENCOUNTER 2024-08-15 12:39 | Outpatient (CLI) | payer OTHER, SELFPAY ==
--- NOTE | ~2024-08-15 | MR_ITS ---
EXAMINATION: MR shoulder RT wo con DATE: 08/15/2024 13:13 INDICATION: Right shoulder pain. TECHNIQUE: Magnetic resonance imaging (MRI) of the right shoulder was performed without intravenous c ontrast. Sequences included axial PD-weighted FS FSE, coronal oblique PD-weighted FS FSE and T2-weigh grzegorz FS FSE, and sagittal oblique T2-weighted FS FSE and T1-weighted FSE. COMPARISON: Right shoulder radiographs 02/19/2024 FINDINGS: Coracoacromial arch: The acromion undersurface is flat in morphology (type I). There is mild acromioclavicular joint osteo arthritis. There is mild subacromial/subdeltoid bursitis. Rotator cuff: There is mild supraspinatus tendinopathy. Infraspinatus and teres minor tendons are normal. Subscapul aaron tendon is normal. There is no asymmetric fatty atrophy of the rotator cuff muscle bellies. Biceps tendon and glenoid labrum: Biceps tendon is in bicipital groove. Intra-articular biceps tendon is normal. The glenoid labrum is normal. Fluid: There is no glenohumeral joint effusion. Bones/cartilage: Glenoid cartilage is normal. Humeral head cartilage is normal. IMPRESSION: 1. Mild supraspinatus tendinopathy. No tear. 2. Mild acromioclavicular joint osteoarthritis. 3. Mild subacromial/subdeltoid bursitis. Reviewed, dictated and finalized at location A.
== END 2024-08-15 12:40 | disposition home or self-care (01) ==
LOC: ANHIMG 12:42
PROVIDERS: PCP Family Medicine; Visit Provider Family Medicine
DX: M75.31 Calcific tendinitis of right shoulder (principal); M19.011 Primary osteoarthritis, right shoulder; M75.51 Bursitis of right shoulder; M25.511 Pain in right shoulder
CPT/HCPCS: 73221

== ENCOUNTER 2024-11-03 15:14 | Outpatient (CLI) | payer OTHER, SELFPAY ==
[2024-11-03 15:45] LABS: Basophils Absolute Auto 0.1 K/mm3 (0.0-0.1); Basophils Percent Auto 0.7 % (0.2-1.2); Eosinophils Absolute Auto 0.1 K/mm3 (0-0.3); Eosinophils Percent Auto 1.7 % (0-4.4); Hematocrit 44.3 % (42.0-52.0); Hemoglobin 14.7 g/dL (14.0-18.0); Immature Granulocyte Absolute 0.02 K/mm3 (0.00-0.031); Immature Granulocyte Percent A 0.3 % (0-0.5); Lymphocytes Absolute Auto 2.65 K/mm3 (0.9-3.2); Mean Corpuscular HGB Conc 33.2 g/dl (32-36); Mean Corpuscular Hemoglobin 29.1 pg (26-34); Mean Corpuscular Volume 87.5 fl (80-100); Mean Platelet Volume 9.2 fl (7.4-10.4); Monocytes Absolute Auto 0.7 K/mm3 (0.1-0.6); Monocytes Percent Auto 9.8 % (2.6-8.5); Neutrophils Absolute Auto 3.6 K/mm3 (1.3-6.7); Neutrophils Percent Auto 50.5 % (45.5-73.1); Platelet Count Result 248 k/mm3 (150-375); Red Blood Count 5.06 M/mm3 (4.6-6.20); Red Cell Distribution Width 11.6 % (11.5-14.5); White Blood Count 7.2 K/mm3 (4.5-10.0)
[2024-11-03 15:55] LABS: Alanine Aminotransferase 22 U/L (6-50); Albumin Level 4.8 g/dL (3.5-5.1); Alkaline Phosphatase 82 U/L (38-126); Anion Gap 5 mmol/L (4-12); Aspartate Amino Transferase 30 U/L (17-59); Bilirubin,Total 0.6 mg/dL (0.2-1.3); Blood Urea Nitrogen 16 mg/dL (9-20); Calcium 9.1 mg/dL (8.4-10.2); Carbon Dioxide 29 mmol/L (22-30); Chloride 103 mmol/L (98-107); Estimated Glomerular Filt Rate > 60; Glucose 85 mg/dL (65-110); Sodium 137 mmol/L (137-145)
[2024-11-03 16:32] LABS: Add Urine Microscopic? NO; Appearance Urine Clear (Clear); Bilirubin Urine Negative (Negative); Blood Urine Negative (Negative); Color Urine Yellow (Yellow); Glucose Urine UA Negative (Negative); Ketones Urine 2+ mg/dL (Negative); Leukocyte Esterase Ur Negative LEU/UL (Negative); Nitrate Urine Negative (Negative); Protein Urine Negative (Negative); Specific Grav Ur 1.032 (1.001-1.035); Urobilinogen Urine 0.2 mg/dL (<2.0)
== END 2024-11-03 15:15 | disposition home or self-care (01) ==
LOC: ANHLAB 15:16
PROVIDERS: PCP Family Medicine; Visit Provider Physician Assistant
DX: R10.9 Unspecified abdominal pain (principal); R31.9 Hematuria, unspecified
CPT/HCPCS: 36415; 80053; 81003; 85025

== ENCOUNTER 2024-11-11 10:44 | Outpatient (CLI) | payer OTHER, SELFPAY ==
--- NOTE | ~2024-11-11 | CT_ITS ---
EXAMINATION: CT abdomen pelvis wo con DATE: 11/11/2024 10:58 INDICATION: Abdominal pain TECHNIQUE: Computed tomography (CT) of the abdomen and pelvis was performed without intravenous contr ast. Automated exposure control and iterative reconstruction technique were employed. The dose-length product was 523.67 mGy-cm. COMPARISON: 02/29/2024 FINDINGS: Small region of consolidation in the posterior basilar right lower lobe. Mild discoid atelectasis in the left lower lobe. Heart size is normal. No pericardial or pleural effusion. Liver, gallbladder, sp alberto, pancreas, bilateral adrenal glands and right kidney are normal. 3 mm nonobstructing left renal stone. Bowels including the appendix are normal. Bladder is normal. No free intraperitoneal gas or fl uid. No pathologically enlarged abdominal or pelvic lymphadenopathy. Small fat-containing left inguin al hernia. 3 mm retrolisthesis L5 on S1. IMPRESSION: 1. Small region of consolidation at the posterior basilar left lower lobe which could represent atele ctasis or pneumonia. 2. 3 mm nonobstructing left renal stone. 0.3. Small fat-containing left inguinal hernia. Reviewed, dictated and finalized at location B. J2EE JAVA DEVELOPER IMPRESSION: 1. Small region of consolidation at the posterior basilar left lower lobe which could represent atelectasis or pneumonia. 2. 3 mm nonobstructing left renal stone. 0.3. Small fat-containing left inguina l hernia.
== END 2024-11-11 10:45 | disposition home or self-care (01) ==
LOC: MICIMG 10:45
PROVIDERS: PCP Family Medicine; Visit Provider Physician Assistant
DX: J84.89 Other specified interstitial pulmonary diseases (principal); N20.0 Calculus of kidney; K40.90 Unilateral inguinal hernia, without obstruction or gangrene, not specified as recurrent; R14.0 Abdominal distension (gaseous)
CPT/HCPCS: 74176

== ENCOUNTER 2024-12-29 15:54 | Outpatient (CLI) | payer OTHER, SELFPAY ==
--- NOTE | ~2024-12-29 | XR_ITS ---
EXAMINATION: XR soft tissue neck DATE: 12/29/2024 16:14 INDICATION: Neck pain. TECHNIQUE: 2 views of the neck soft tissues standing were obtained. COMPARISON: Cervical spine radiographs 09/23/2022 FINDINGS: The adenoids, palatine tonsils, epiglottis, prevertebral soft tissues, and glottis are norm al. No radiopaque foreign body. IMPRESSION: 1. Normal neck soft tissues. Reviewed, dictated and finalized at location A. ING ADMIN
== END 2024-12-29 15:55 | disposition home or self-care (01) ==
LOC: MICIMG 15:57
PROVIDERS: PCP Family Medicine; Visit Provider Physician Assistant Medical
DX: M54.2 Cervicalgia (principal)
CPT/HCPCS: 70360

== ENCOUNTER 2025-01-09 02:15 | Day surgery (SDC) | payer OTHER, SELFPAY ==
[2024-12-26 12:26] VITALS: BMI 27.3
--- OUTSIDE RECORDS SUMMARY | 2025-01-09 02:18 | XMS_ITS | Referral Summary ---
Author Organization [facility] [employer] Address [address] [place] [address] Care Team Providers Care Fermentation Engineer Name Role Phone Yoshi Aguilera MD Primary Care Provider [phone] Source Comments [facility] [employer],non-owned Affiliates and Associated Physician Practices is amultiple site organization consisting of ambulatory clinics and hospital sitesin [place], [place], [place]. This disclosure is being madepursuant to the Care Everywhere program and may not contain all information available regarding this patient. Last updated 18.[facility] Allergies Active Allergy Reactions Criticality Noted Date Comments Adhesive Sensitivity Urticaria Medium 06/16/2017 Sunscreen Rash,Itching Medium 12/25/2018 Medications Be aware that medications may not be up to date on this document. Always verify current medications with the patient. No known medications Active Problems No known active problems Social History Tobacco Use Types Packs/Day Years Used Date Smoking Tobacco: Never Smokeless Tobacco: Never Alcohol Use Standard Drinks/Week Comments No 0 (1 standard drink = 0.6 oz pur e alcohol) Sex and Gender Information Value Date Recorded Sex Assigned at Not on file Gender Identity Not on file Sexual Orientation Not on file Last Filed Vital Signs Vital Sign Reading Time Taken Comments Blood Pressure 104/80 12/25/2018 10:44 AM DIRECTORY CARRIER Pulse 59 12/25/2018 10:44 AM DIRECTORY CARRIER Temperature 36.5 C (97.7 F) 12/25/2018 10:44 AM DIRECTORY CARRIER Respiratory Rate 15 12/25/2018 10:44 AM DIRECTORY CARRIER Oxygen Saturation 99% 12/25/2018 10:44 AM DIRECTORY CARRIER Inhaled Oxygen Concentration - - Weight 81.6 kg (180 lb) 12/25/2018 10:44 AM DIRECTORY CARRIER Height 177.8 cm (5' 10 ) 12/25/2018 10:44 AM DIRECTORY CARRIER Body Mass Index 25.83 12/25/2018 10:44 AM DIRECTORY CARRIER Plan of Treatment Not on file Care Teams Fermentation Engineer Relationship Specialty Start Date End Date Yoshi Aguilera MD [address] [place] [address] PCP - General Family Medicine 06/16/17
--- OUTSIDE RECORDS SUMMARY | 2025-01-09 02:18 | XMS_ITS | Continuity of Care Document ---
Author Organization [facility] Address [address] [place] [address] Phone Care Team Providers Care Tapper Balance Wheel Screw Hole Name Role Phone Sandi OD, Madai Unavailable Unavailable Allergies, Adverse Reactions, Alerts Substance Reaction Status Criticality No Known Allergies Active No Inform ation Medications Medication Instructions Dosage Effective Dates (start - stop) Status Comments Miebo 100 % eye drops instill 1 drop by ophthalmic route 4 times every day into affected eye(s) 1.00 drop - Active omeprazole 20 mg capsule,delayed release take 1 capsule by oral route every day 30 minutes to 1 hour before a meal 20 MG - Active Procedures Procedure Date Eye Photography Office/outpatient Visit, Est Roger Eye Mask Office/outpatient Visit, Est Xcellent A 3000 60 C Office/outpatient Visit, Est InflammaDry Remove Eyelid Lesions Office/outpatient Visit, Est Treat Eyelid By Injection Drainage Of Eyelid Abscess Office/outpatient Visit, Est Kenalog/Triamcinolone Acetonide Inj Treat Eyelid By Injection Office/outpatient Visit, Est Office/outpatient Visit, Est Drainage Of Eyelid Abscess Roger Eye Mask Office/outpatient Visit, New Advance Directives Directive Yes / No Effective Date File Name No Information Encounters Encounter Description Practice Location Reason(s) For Visit Diagnoses Date Provider Providers Copied on Encounter [facility], [id number] [place] [address] [address], [place], [place], [id number], tel:[phone] DEI Lincoln No Information Feb-0 -202 4 Sandi OD Madai. [address] [place] [address] [address], [place], [place], [address], [place]. tel:[phone] Office/outpa tient Visit, [facility], [id number] [place] [address] [address], [place], [place], [address], tel:[phone] KIRK LICONA Professional 1-2 week Dry eye follow up (chief complaint) Ocular manifestatio ns of vitamin A deficiencyMe ibomian gland dysfunction (MGD)Dry eye syndrome of bilateral lacrimal glands Fe- 4 Sandi OD Madai. [address] [place] [address] [address], [place], [place], [address], [place]. tel:[phone] Referring Provider: Jacqui Cary OD, [address], [address]. tel:[phone] Office/outpa tient Visit, [facility], [address] [place] [address] [address], [place], [place], [address], tel:[phone] DEI Lincoln 2 month Dry eye followup (chief complaint) Meibomian gland dysfunction (MGD)H/O chalazionDry eye syndrome of bilateral lacrimal glandsOcular manifestatio ns of vitamin A deficiency Oct-0 - 3 Sandi OD Madai. [address] [place] [address] [address], [place], [place], [address], [place]. tel:[phone] Referring Provider: Jacqui Cary OD, [address], [address]. tel:[phone] Office/outpa tient Visit, [facility], [address] [place] [address] [address], [place], [place], [address], [place] tel:[phone] [place] Professional swelling (chief complaint)F ollow up visit (chief complaint) Chalazion right upper eyelidChalaz ion right lower eyelidMeibom afustino gland dysfunction (MGD) Oct-0 9 3 Sandi OD Madai. [address] [place] [address] [address], [place], [place], [address], [place]. tel:[phone] Referring Provider: Jacqui Cary OD, [address], [facility]. tel:[phone] Office/outpa tient Visit, [facility], [address] [place] [address] [address], [place], [place], [address], [place] tel:[phone] [place] Professional bump (chief complaint) Chalazion of right upper eyelidChalaz ion right lower eyelid Nov-2 2 Alverto Belle. [address] [facility], [facility] [place], [address], [place]. tel:[phone] Referring Provider: Jacqui Cary OD, [address], [address]. tel:[phone] Office/outpa tient Visit, [facility], [address] [place] [address] [address], [place], [place], [address], [place] tel:[phone] [place] Professional WIE (chief complaint) Chalazion right lower eyelidMeibom faustino gland dysfunction (MGD) Oct-2 2 Alverto Belle. [address] [facility], [address], [place], [place], [address], [place]. tel:[phone] Referring Provider: Jacqui Cary OD, [address], [address]. tel:[phone] Office/outpa tient Visit, [facility], [address], [place], [place], [address], [place] tel:[phone] [place] Professional office visit (chief complaint) Chalazion right upper eyelid March- 2 Alverto Belle. [address] [facility], [address], [place], [place], [address], [place]. tel:[phone] Referring Provider: Jacqui Cary OD, [address], [place], [address]. tel:[phone] Office/outpa tient Visit, [facility], [address], [place], [place], [address], [place] tel:[phone] [place] Professional evaluation (chief complaint) Chalazion of right upper eyelid Feb- 2 Alverto Belle. [address] [facility], [address], [place], [place], [address], [place]. tel:[phone] Referring Provider: Jacqui Cary OD, [address], [address]. tel:[phone] [facility], [address], [place], [place], [address], [place] tel:[phone] [place] Professional 2 week f/u (chief complaint) Chalazion of right upper eyelid Jan- 2 Alverto Belle. [address] [facility], [address], [place], [place], [address], [place]. tel:[phone] Referring Provider: Jacqui Cary OD, [address], [address]. tel:[phone] Office/outpa tient Visit, [facility], [address], [place], [place], [address], [place] tel:[phone] [place] Professional evaluation (chief complaint) Chalazion of right upper eyelidPresep oumou cellulitis 2 Del Toro Yoshi. [address] [facility], [address], [place], [place], [address], [place]. tel:[phone] Referring Provider: Jacqui Cary , [address], [address]. tel:[phone] Family History Family Member Type Diagnosis Age At Onset Brother Problem (finding) Gall stones Father Problem (finding) High blood pressure Maternal Grandmother Problem (finding) Glaucoma Mother Problem (finding) Bleeding/Clotting Father Problem (finding) Heart Disease Mother Problem (finding) Cancer (other types) Paternal Grandfather Problem (finding) Cancer (other t ypes) Maternal Grandmother Problem (finding) Stroke Mother Problem (finding) Diabetes Type I Paternal Grandfather Problem (finding) Heart Disease Problem Family history o f Diabetes mellitus Problem Family history of Glaucoma Father Problem (finding) Cancer (other types) Father Problem (finding) Kidney Disease Payers Payer name Insurance type Covered libertarian ID Authoriza miguel angel(s) Christopher [id number] Social History Type Description Quantity Date Captured Comments Alcohol Use Details Unknown Caffeine Use Details Unknown Tobacco Use Status No Information Smoking Status No Information Sex Male Chief Complaint And Reason For Visit No Information Reason For Referral Reason For Referral No Information Plan Of Treatment Date Type Action Status Patient Education Styes and Chalazia: Car e Instructions completed Patient Education Eyelid Surgery: What to Expect at Home completed Patient Education Cellulitis: Care Instru ctions completed History Of Present Illness Encounter Date Complaint History Of Prese nt Illness 1-2 week Dry eye follow up The 2 0 year old patient presents for evaluation of 1-2 week Dry eye follow up in the right eye and left eye. Pt was instructed at last visit to begin taking Xcellent A 3000mcg daily and [place] 3 1500 mg daily. Pt tried the vitamins but the A vitamin did not absorb based on his labs, pt spoke to TKB about this via phone call and it is noted in his chart. Pt has been taking [place] 3 daily, pt using moist pads for his eyes and they seem to help. Pt states the doctor TKB referred him to in [facility] has not called him to schedule still. SPEED: 03/13TBUT: 2.68/-3.89 2 month Dry eye followup The 38 year old patient presents for evaluation of 2 month Dry eye followup in the right eye and left eye. Pt. has used prn Roger mask. Pt. states stye did drain and went down, pt. states does have a white bump left. At times it starts filling again but restarts heat mask. Pt. states talked to PCP and told he does have Gerd so has to continue taking Omeprazole. Pt. had another ophthalmic migraine the other day again, occurs mostly when he is tired. Speed score: 01/13TBUT: OD: -6.82 OS: 5.54 swelling Follow up visit The patient is p resent for an office visit for swelling in the Right eye. Pt states OD has some styes and OD is starting to swell up and pt has been using Roger mask. Pt hasn't used it in last couple days due to it making swelling worse. Pt states OU has been bothering him but more so OD. bump The 37 year old patient presents for evaluation of bump in the RLL. Patient states he is not sure if the bump is coming back on his RLL and he thinks he is getting a bump on his RUL. WIE The 37 year old patient presents for a WIE OD. Patient states he has a bump inside RLL x 2 weeks. Patient states he has been using heat and seems to be getting bigger. Patient states about a month ago he had one inside the LLL and had to have it cut out. Patient states that one was really big and it hurt. office visit The 37 year old patient presents for an office visit. Patient states the bumps on his RUL are not getting any better. Patient states it gives him a headache. Patient states he uses the Roger mask once a day. evaluation The 37 year old patient presents for an office visit. Patient had I & D RUL on 02/10and states the bump came back. Patient states he has pain all around the right eye. Patient took some of his 's strep throat amoxicillin for a total of 5 pills. Patient states he has been using heat on his RUL. 2 week f/u The 37 year old patient presents for evaluation of 2 week f/u Preseptal cellulitis RUL and possible chalazion removal. Patient states swelling is down in the right eye but the bump is still there. Patient finished antibiotic. Patient using Roger mask one to two x a day. Patient states VA with the right eye seems a little fuzzy. evaluation The 37 year old client presents for an evaluation of a STY RUL x 3 weeks. Patient states it is hard to open his eye. Patient states he has been seeing Dr. Jacqui Cary. Patient has been taking Amoxacillin x 2 days and no improvement. Functional Status Date Functional Assessmen t No Information Instructions Date Instruction Additional Infor thuy Impression/Plan Impression/Plan Impression/Plan Impression/Plan Impression/Plan Impression/Plan Impression/Plan Impression/Plan Impression/Plan Assessments Type Assessment Date No Information Patient Care Teams Name Effective Dates (start - stop) Status Members No Information
--- OUTSIDE RECORDS SUMMARY | 2025-01-09 02:18 | XMS_ITS | Clinical Summary ---
Author Organization [facility] Address [facility] [place] [address] Care Team Providers Care Equal Opportunity Officer Name Role Phone Unavailable Primary Care Provider Unavailabl e Social History Tobacco Use Types Packs/Day Years Used Date Smoking Tobacco: Never Assessed Sex and Gender Information Value Date Recorded Sex Assigned at Not on file Legal Sex Male 6:06 PM CDT Gender Identity Not on file Sexual Orientation Not on file Plan of Treatment Health Maintenance Due Date Last Done Comments Annual Physical 1986 Hepatitis C 2001 DTaP, Tdap and Td Vaccines ( 1 - Tdap) 2002 Hepatitis B Vaccines (1 of 3 - 19+ 3-dose series) 2002 COVID-19 Vaccine (2023-2 5 season) 2024 Influenza Adult (#1) 2024 HPV Vaccines Aged Out No longer eligi ble based on patient's age to complete this topic Meningococcal B Vaccine Aged Out No l onger eligible based on patient's age to complete this topic Meningococcal Vaccine Aged Out No cookie vikram eligible based on patient's age to complete this topic Pneumococcal Vaccine: Pediat rics (0 to 5 Years) and At-Risk Patients (6 to 64 Years) Aged Out No longer eligible b ased on patient's age to complete this topic RSV Immunizations Under 20 Months Aged Out No longer eligible based on patient's age to complete this topic
--- OUTSIDE RECORDS SUMMARY | 2025-01-09 02:18 | XMS_ITS | Clinical Summary ---
Author Organization [facility] [employer] Address [address] [facility] [place] [address] Care Team Providers Care Public Health Service Officer Name Role Phone Yoshi Aguilera MD Primary Care Provider [phone] Source Comments [facility] [employer],non-owned Affiliates and Associated Physician Practices is amultiple site organization consisting of ambulatory clinics and hospital sitesin [place], [place], [place] and [place]. This disclosure is being madepursuant to the Care Everywhere program and may not contain all information available regarding this patient. Last updated 18.[facility] [employer] Allergies Active Allergy Reactions Criticality Noted Date [...] Comments Blood Pressure 104/80 12/25/2018 10:44 AM QI SPECIALIST Pulse 59 12/25/2018 10:44 AM QI SPECIALIST Temperature 36.5 C (97.7 F) 12/25/2018 10:44 AM QI SPECIALIST Respiratory Rate 15 12/25/2018 10:44 AM QI SPECIALIST Oxygen Saturation 99% 12/25/2018 10:44 AM QI SPECIALIST Inhaled Oxygen Concentration - - Weight 81.6 kg (180 lb) 12/25/2018 10:44 AM QI SPECIALIST Height 177.8 cm (5' 10 ) 12/25/2018 10:44 AM QI SPECIALIST Body Mass Index 25.83 12/25/2018 10:44 AM QI SPECIALIST Plan of Treatment Health Maintenance Due Date Last Done Comments LIPID TESTING 1983 HIV SCREENING 1998 HEPATITIS C SCREENING 12/28/2000 DTAP/TDAP/TD VACCINES (1 - Tdap) 2002 HEPATITIS B VACCINE (1 of 3 - 19+ 3-dose series) 2002 COVID-19 VACCINE ( - 2023-2 5 season) 2024 INFLUENZA VACCINE (#1) 2024 DEPRESSION SCREENING 11/16/2024 ZOSTER VACCINE (1 of 2) 2033 HIB VACCINE Aged Out No longer eligi ble based on patient's age to complete this topic HPV VACCINE Aged Out No longer eligi ble based on patient's age to complete this topic MENINGOCOCCAL (Group B) VACCINE Aged Out No longer eligible based on patient's age to complete this topic MENINGOCOCCAL VACCINE Aged Out No cookie vikram eligible based on patient's age to complete this topic PNEUMOCOCCAL VACCINE Aged Out No long er eligible based on patient's age to complete this topic Care Teams Public Health Service Officer Relationship Specialty Start Date End Date Yoshi Aguilera MD [address] [place] [address] PCP - General Family Medicine 06/16/17
--- OUTSIDE RECORDS SUMMARY | 2025-01-09 02:18 | XMS_ITS | Patient Health Summary ---
Author Organization [facility] [employer] Address [address] [place] [address] Care Team Providers Care Stock Sheets Cleaner Inspector Name Role Phone Yoshi Aguilera MD Primary Care Provider [phone] Note from [facility],non-owned Affiliates and Associated Physician Practices is amultiple site organization consisting of ambulatory clinics and hospital sitesin [place], [place] and [place]. This disclosure is being madepursuant to the Care Everywhere program and may not contain all information available regarding this patient. Last updated 18.[facility] [employer] Allergies * Adhesive Sensitivity(Urticaria) -Medium Criticality * Sunscreen(Rash,Itching) -Medium Criticality Medications Be aware that medications may not [...] Comments Blood Pressure 104/80 12/25/2018 10:44 AM SPA HOST Pulse 59 12/25/2018 10:44 AM SPA HOST Temperature 36.5 C (97.7 F) 12/25/2018 10:44 AM SPA HOST Respiratory Rate 15 12/25/2018 10:44 AM SPA HOST Oxygen Saturation 99% 12/25/2018 10:44 AM SPA HOST Inhaled Oxygen Concentration - - Weight 81.6 kg (180 lb) 12/25/2018 10:44 AM SPA HOST Height 177.8 cm (5' 10 ) 12/25/2018 10:44 AM SPA HOST Body Mass Index 25.83 12/25/2018 10:44 AM SPA HOST Care Teams Stock Sheets Cleaner Inspector Relationship Specialty Start Date End Date Yoshi Aguilera MD [address] [place] [address] PCP - General Family Medicine 06/16/17
--- OUTSIDE RECORDS SUMMARY | 2025-01-09 02:18 | XMS_ITS | Clinical Summary ---
Author Organization [facility] [employer] Address [address] [place] [address] Care Team Providers Care Hospital Secretary Name Role Phone Yoshi Aguilera MD Primary Care Provider [phone] Allergies Active Allergy Reactions Criticality Noted Date Comments Adhesive Tape-Silicones Rash Medium 06/16/2017 Sunscreen Rash,Itching Medium 12/25/2018 Medications omeprazole (PriLOSEC) 20 mg Capsule, Delayed Release(E.C.)Ind ications:Gastroe sophageal reflux disease with esophagitis TAKE 1 CAPSULE DAILY 90 Capsule 1 01/11/2024 Active Active Problems Problem Noted Date Diagnosed Date Lymphadenopathy 05/30/2020 Localized swelling, mass or lump of neck 020 Gastroesophageal reflux disease with esophagitis 05/02/2020 Encounters Date Type Department Care Team Description 12/20/2024 External Device Data [facility] ABSTRACTION Provider, Abstract 12/07/2024 External Device Data [facility] ABSTRACTION Provider, Abstract 12/06/2024 External Device Data [facility] ABSTRACTION Provider, Abstract from Last 3 Months Immunizations Immunization Administration Dates Next Due (ADACEL/BOOSTRIX)(10 YR UP) TDAP VACCINE, 0.5ML, IM 11/16/2016 INFLUENZA VACCINE QUADRIVALENT 6 MOS UP IM 08/17 INFLUENZA VACCINE QUADRIVALENT 6 MOS UP PF IM ,08/15/2020 INFLUENZA VACCINE TRIVALENT SPLIT VIRUS, (6 MOS UP), 0.5ML (PF), IM 08/25/2024 Family History Medical History Relation Name Comments No Known Problems Brother Heart Attack Father Lung Cancer Father Skin Cancer Father Unknown Maternal Grandfather Stroke Maternal Grandmother Blood Disorder Mother Diabetes Mother Diabetes Paternal Grandfather Heart Attack Paternal Grandfather Blood Disorder Sister Celiac Disease Neg Hx Colon Cancer Neg Hx Crohn's Disease Neg Hx Inflammatory Bowel Disease Neg Hx Ulcerative Colitis Neg Hx Relation Name Status Comments Brother Alive Father Alive Maternal Grandfather Maternal Grandmother Mother Alive Paternal Grandfather Sister Alive Social History Tobacco Use Types Packs/Day Years Used Date Smoking Tobacco: Never Smokeless Tobacco: Never Tobacco Cessation:Counseling Given: No Alcohol Use Standard Drinks/Week Comments Never 0 (1 standard drink = 0.6 oz pur e alcohol) Sex and Gender Information Value Date Recorded Sex Assigned at Not on file Legal Sex Male 3:48 PM CDT Gender Identity Not on file Sexual Orientation Not on file Last Filed Vital Signs Vital Sign Reading Time Taken Comments Blood Pressure 102/74 01/18/2024 9:57 AM EYE DROPPER ASSEMBLER Pulse 66 11/03/2022 10:21 AM EYE DROPPER ASSEMBLER Temperature 35.1 C (95.1 F) 11/03/2022 10:21 AM EYE DROPPER ASSEMBLER Respiratory Rate 16 11/03/2022 10:21 AM EYE DROPPER ASSEMBLER Oxygen Saturation 98% 11/03/2022 10:21 AM EYE DROPPER ASSEMBLER Inhaled Oxygen Concentration - - Weight 79.4 kg (175 lb) 01/18/2024 9:57 AM EYE DROPPER ASSEMBLER Height 175.3 cm (5' 9 ) 01/18/2024 9:57 AM EYE DROPPER ASSEMBLER Body Mass Index 25.84 01/18/2024 9:57 AM EYE DROPPER ASSEMBLER Plan of Treatment Upcoming Encounters Date Type Department Care Team (Late st Contact Info) Description 01/11/2025 2:00 PM EYE DROPPER ASSEMBLER Office Visit [facility] [employer] [place] [address] [address] Health Maintenance Due Date Last Done Comments Pre-Diabetes and Diabetes Screening 1983 HEPATITIS B VACCINES (1 of 3 - 19+ 3-dose series) 2002 DTAP/TDAP/TD VACCINES (2 - Td or Tdap) 11/16/2026 11/16/2016 INFLUENZA VACCINE Completed 08/25/2024, , 08/15/2020, Additional history exists HPV VACCINES Aged Out No longer eligi ble based on patient's age to complete this topic Insurance ALLEGIANCE OPEN ACCESS Advance Directives For more information, please contact: [phone] * Full Code (Latest Code Status on File) Date Activated Date Inactivated Comments 06/20/2020 2:08 PM 06/20/2020 6:18 PM Care Teams Hospital Secretary Relationship Specialty Start Date End Date Yoshi Aguilera MD [address] [facility] [address] [id number] PCP - General Family Practice 03/16/23
[2025-01-09 13:16] VITALS: BP 117/78; PULSE 72; RESP 18; TEMP 36.1; O2SAT 97
[2025-01-09] MEDS: LACTATED RINGERS 1,000 ML 150 ML IV CONT (13:28)
--- NOTE | 2025-01-09 13:42 | WPDANESEPPF ---
Anes - Initial Pre Proc Eval Procedure: Operation Date: 01/09/25 14:30 Proposed Procedures p Colonoscopy - Manohar Montelongo MD Date/Time: 01/09/25 13:42 Surgeon: Manohar Montelongo MD Pre Op Diagnosis: hx of colon polyps Patient Data Age: 40 Gender: M Height: 1.75 m Weight: 83.8 kg Last Vital Signs Temp 36.1 C L 01/09/25 13:16 Pulse 72 01/09/25 13:16 Resp 18 01/09/25 13:16 BP 117/78 01/09/25 13:16 Pulse Ox 97 01/09/25 13:16 O2 Del Method Room Air 01/09/25 13:16 Allergies Allergy/AdvReac Type Severity Reaction Status Date / Time menthol Allergy Unknown Hives Verified 01/09/25 13:13 Home Medications ?Medication ?Instructions ?Recorded ?Confirmed ?Type xluaswtg-njy-buwbc acid 200 1 tablet PO DAILY 09/19/24 01/09/25 History mcg-vit K1 60 mcg-lycopene 600 mcg tablet (Men's Multivitamin) omeprazole 20 mg capsule,delayed 20 mg PO DAILY PRN gastric reflux 12/26/24 12/29/24 History release Patient hx anesthesia problems: none Family hx anesthesia problems: none Results Review: All pre-operative results and documents have been reviewed as part of the pre-operative evaluation. [facility] Past Medical History Medical History Hx MRSA infection Hepatic steatosis GERD (gastroesophageal reflux disease) Surgical History Surgical History History of colonoscopy H/O excision of mass exc skin cyst back 1.5cm 04/14/24 History of tonsillectomy History of incision and drainage right knee Family History Family History Father Skin cancer Acute myocardial infarction Mother Factor V inhibitor disorder Diabetes mellitus Skin cancer Social History Social History Social History: Smoking status: Never smoker Second hand tobacco smoke exposure: No Alcohol intake: never Substance use: never Substance use type: does not use Do You Feel Safe in your Home?: Yes Lack of Transportation: No Lack of Food: Never True Current Housing: I Have Housing Concerned About Future Housing: No Difficulty Paying Gas/Electric Bills: No Difficulty Paying for Meds: No Currently Unemployed: No Education: High School Diploma/GED Difficulty w/ Childcare or Family Care: No Living arrangements: with family Occupation/Education: occupation Gender identity (if verbalized by the patient): Male Sexual Orientation (if Verbalized by the Patient): Straight or Heterosexual Spiritual care concerns: No Anes - Eval Final PreProcedure Day of Procedure 01/09/25 13:42 Patient weight: overweight Heart: regular rate and rhythm Lungs: clear to auscultation Airway: Mallampati scale class II Neurological: alert and oriented Last oral intake: >/= 8 hours ASA classification: II Emergent: no Anesthetic plan: proceed Anesthesia type and monitoring: general GIVS and standard monitoring Results Review: All pre-operative results and documents have been reviewed as part of the pre-operative evaluation. Informed Consent: The patient's anesthetic plan and its attendant risks and benefits were discussed with the patient/family/POA. Questions were solicited and answers provided to the satisfaction of the patient/family/POA.
--- NOTE | 2025-01-09 13:43 | PM.HPGS ---
History of Present Illness History of Present Illness Consent: Risks, benefits, and alternatives have been discussed and questions answered. Patient agrees to proceed with procedure. Chief complaint: hx of colon polyps Narrative: Elmo Cochran is a 40 year old male with colon polyp in 2020 Review of Systems Review of Systems: All systems reviewed & are unremarkable except as noted in HPI and below PMFSH Past Medical History Medical History (Updated 01/09/25 @ 13:44 by Manohar Montelongo MD) Colon polyp Hx MRSA infection Hepatic steatosis GERD (gastroesophageal reflux disease) Surgical History Surgical History History of colonoscopy H/O excision of mass exc skin cyst back 1.5cm 04/14/24 History of tonsillectomy History of incision and drainage right knee Family History Family History Father Skin cancer Acute myocardial infarction Mother Factor V inhibitor disorder Diabetes mellitus Skin cancer Social History Social History Social History: Smoking status: Never smoker Second hand tobacco smoke exposure: No Alcohol intake: never Substance use: never Substance use type: does not use Do You Feel Safe in your Home?: Yes Lack of Transportation: No Lack of Food: Never True Current Housing: I Have Housing Concerned About Future Housing: No Difficulty Paying Gas/Electric Bills: No Difficulty Paying for Meds: No Currently Unemployed: No Education: High School Diploma/GED Difficulty w/ Childcare or Family Care: No Living arrangements: with family Occupation/Education: occupation Gender identity (if verbalized by the patient): Male Sexual Orientation (if Verbalized by the Patient): Straight or Heterosexual Spiritual care concerns: No Meds Home Medications and Allergies Home Medications ?Medication ?Instructions ?Recorded ?Confirmed ?Type obprqnow-hti-dpqfs acid 200 1 tablet PO DAILY 09/19/24 01/09/25 History mcg-vit K1 60 mcg-lycopene 600 mcg tablet (Men's Multivitamin) omeprazole 20 mg capsule,delayed 20 mg PO DAILY PRN gastric reflux 12/26/24 12/29/24 History release Allergies Allergy/AdvReac Type Severity Reaction Status Date / Time menthol Allergy Unknown Hives Verified 01/09/25 13:13 Vital Signs Vital Signs - 24 hr 01/09/25 13:16 Temperature 97 F L Pulse Rate 72 Respiratory Rate 18 Blood Pressure 117/78 Pulse Oximetry 97 Oxygen Delivery Room Air Exam Const: General: comfortable and no acute distress HENMT: Face/Nose/Sinus: Normal nares present Eyes: General: appearance normal, both eyes and all related structures Neck: Neck: no JVD Resp: Auscultation: clear to auscultation bilaterally Cardio: Rate: regular rate Rhythm: regular rhythm GI: Inspection: non-distended GI Palp: Yes Soft to palpation Skin: General skin exam: normal color Neuro: General: gait normal Speech: normal speech Extrem: General: normal to inspection Psych: Mental Status: mental status grossly normal Assessment and Plan Assessment and plan (1) Colon polyp: Code(s): K63.5 - Polyp of colon Status: Acute Assessment and Plan: colonoscopy
[2025-01-09 13:56] VITALS: BP 91/56; PULSE 76; RESP 16; O2SAT 97
[2025-01-09 14:06] VITALS: BP 91/65; PULSE 73; RESP 21; O2SAT 99
[2025-01-09 14:16] VITALS: BP 106/65; PULSE 63; RESP 14; O2SAT 100
== END 2025-01-09 14:24 | disposition home or self-care (01) ==
PROVIDERS: PCP Family Medicine; Referring Provider Internal Medicine Gastroenterology; Visit Provider Internal Medicine Gastroenterology
PROC: 0DJD8ZZ Inspection of Lower Intestinal Tract, Via Natural or Artificial Opening Endoscopic (ICD-10-PCS; CPT 45378; principal; 2025-01-09 14:30)
DX: Z12.11 Encounter for screening for malignant neoplasm of colon (principal); Z86.0100 Personal history of colon polyps, unspecified
CPT/HCPCS: 45378; J2704; J7120

== ENCOUNTER 2025-02-09 00:34 | Day surgery (SDC) | payer OTHER, SELFPAY ==
[2025-01-31 09:38] VITALS: BMI 27.1
--- NOTE | 2025-01-31 10:00 | PC.NURSE ---
Report to the Outpatient Waiting Room, entrance under the green pavilion located off [facility], at time 0830 on date 02/09/25. Planned Procedure Time: 1030. Time changes happen often and if your time is changed the preop area will call you the afternoon before. - You and your visitor will be asked to self-screen and do not enter if you have any COVID symptoms. Please call surgeon if you need to reschedule. - A mask is optional within the hospital at this time. Patients may have clear liquids (water, carbonated beverages, clear teas, apple juice) until 3 hours prior to surgery with a maximum of 20 ounces. - No food from midnight until time of surgery and no smoking, or chewing tobacco (or any form of nicotine). No chewing gum, candy or mints. Take only the following medications with a SIP of water on the morning of surgery: N/A DO NOT STOP ANY OF YOUR OTHER PRESCRIPTION MEDICATIONS PRIOR TO SURGERY EXCEPT THE FOLLOWING Hold all vitamins and supplements for 3 days per anesthesiologist. Medications to discontinue per physician- multivitamin Date to take last dose- 02/06/25 Please no make-up, nail bermudian, hairspray, perfume, deodorant, or body powder the day of surgery.? No jewelry (including any body piercings) or valuables the day of surgery, leave them at home.? Please take a shower or bath the night before, or the morning of, surgery with an antibacterial soap.? Wear comfortable, loose fitting clothing.? Children are encouraged to wear pajamas. - Jewelry must be removed prior to entering the operating room.? Rings and piercings that are not removed may be cut off. - The hospital will not accept responsibility for valuables.? - Please leave all valuables, including medications, at home the day of surgery. If you are going home after surgery, a licensed high lift driver must drive you home.? - NO public transportation without another adult if you receive anesthesia. - We recommend that an adult stay with you for 24 hours following discharge. - We also recommend that you do not drive, make important decision, drink alcoholic beverages, or take any drugs that were not prescribed by your health care provider for at least 24 hours after your discharge time. Follow any additional instructions given to you from your surgeon. Telephone instructions given to patient____and asked if any additional questions and then verbalized understanding. Patient advised to call surgeon office or pre surgery nurse liaison [phone] if any additional questions.
[2025-02-09] VITALS (12 sets, daily range): BP systolic 110–130; BP diastolic 50–74; PULSE 66–90; RESP 10–16; TEMP 36.1; O2SAT 96–100
--- OUTSIDE RECORDS SUMMARY | 2025-02-09 00:37 | XMS_ITS | Clinical Summary ---
Author Organization [facility] [place] [place] Address [facility] [place] [place] [address] Care Team Providers Care Sales Operations Director Name Role Phone Yoshi Aguilera MD Primary Care Provider [phone] Allergies Active Allergy Reactions Criticality Noted Date [...] Encounters Date Type Department Care Team Description 01/10/2025 External Device Data ST[facility] ABSTRACTION Provider, Abstract 12/20/2024 External Device Data ST[facility] ABSTRACTION Provider, [...] Comments Blood Pressure 102/74 01/18/2024 9:57 AM HANDY MAN Pulse 66 11/03/2022 10:21 AM HANDY MAN Temperature 35.1 C (95.1 F) 11/03/2022 10:21 AM HANDY MAN Respiratory Rate 16 11/03/2022 10:21 AM HANDY MAN Oxygen Saturation 98% 11/03/2022 10:21 AM HANDY MAN Inhaled Oxygen Concentration - - Weight 79.4 kg (175 lb) 01/18/2024 9:57 AM HANDY MAN Height 175.3 cm (5' 9 ) 01/18/2024 9:57 AM HANDY MAN Body Mass Index 25.84 01/18/2024 9:57 AM HANDY MAN Plan of Treatment Health Maintenance Due Date Last Done Comments Pre-Diabetes and Diabetes Screening 1983 HEPATITIS B VACCINES (1 of 3 - 19+ 3-dose series) 2002 Preventative Visit- Commercial 11/16/2024 DTAP/TDAP/TD VACCINES (2 - Td or Tdap) 11/16/2026 11/16/2016 INFLUENZA VACCINE Completed 08/25/2024, , 08/15/2020, Additional history exists HPV VACCINES Aged Out No longer eligi ble based on patient's age to complete this topic [facility] Advance Directives For more information, please contact: [phone] * Full Code (Latest Code Status on File) Date Activated Date Inactivated Comments 06/20/2020 2:08 PM 06/20/2020 6:18 PM Care Teams Sales Operations Director Relationship Specialty Start Date End Date Yoshi Aguilera MD [address] [facility] [address] [place] [id number] PCP - General Family Practice 03/16/23
--- OUTSIDE RECORDS SUMMARY | 2025-02-09 00:37 | XMS_ITS | Clinical Summary ---
Author Organization [facility] [employer] Address [address] [place] [address] Care Team Providers Care Application Developer Manager Name Role Phone Yoshi Aguilera MD Primary Care Provider [phone] Source Comments [facility] [employer],non-owned Affiliates and Associated Physician Practices is amultiple site organization consisting of ambulatory clinics and hospital sitesin [place], [place] and [place]. This disclosure is being madepursuant to the Care Everywhere program and may not contain all information available regarding this patient. Last updated 18.[facility] [employer] Allergies Active Allergy Reactions Criticality Noted Date [...] Comments Blood Pressure 104/80 12/25/2018 10:44 AM BOOKER Pulse 59 12/25/2018 10:44 AM BOOKER Temperature 36.5 C (97.7 F) 12/25/2018 10:44 AM BOOKER Respiratory Rate 15 12/25/2018 10:44 AM BOOKER Oxygen Saturation 99% 12/25/2018 10:44 AM BOOKER Inhaled Oxygen Concentration - - Weight 81.6 kg (180 lb) 12/25/2018 10:44 AM BOOKER Height 177.8 cm (5' 10 ) 12/25/2018 10:44 AM BOOKER Body Mass Index 25.83 12/25/2018 10:44 AM BOOKER Plan of Treatment Health Maintenance Due Date [...] to complete this topic MENINGOCOCCAL (Group B) VACC INE SHARED DECISION-MAKING Aged Out No longer eligibl e based on patient's age to complete this topic MENINGOCOCCAL GROUPS A/C/Y/W VACCINE Aged Out No longer eligible b ased on patient's age to complete this topic PNEUMOCOCCAL VACCINE Aged Out No long er eligible based on patient's age to complete this topic Care Teams Application Developer Manager Relationship Specialty Start Date End Date Yoshi Aguilera MD [address] [place] [address] PCP - General Family Medicine 06/16/17
--- OUTSIDE RECORDS SUMMARY | 2025-02-09 00:37 | XMS_ITS | Clinical Summary ---
Author Organization [facility] Address [facility] [place] [address] Care Team Providers Care Restaurant Hospitality Manager Name Role Phone Unavailable Primary Care Provider [...]
--- OUTSIDE RECORDS SUMMARY | 2025-02-09 00:37 | XMS_ITS | Continuity of Care Document ---
Author Organization [employer] [facility] Address [address] [place] [address] Phone Care Team Providers Care Cook Seafood Name Role Phone Sandi OD, Madai Unavailable [...] Diagnoses Date Provider Providers Copied on Encounter [facility], [address] [place] [address] [address], [place], [place], [id number], tel:[phone] DEI Winston No Information Feb-0 -202 4 Sandi OD Madai. [address] [place] [address] [address], [place], [place], [address], [place]. tel:[phone] Office/outpa tient Visit, [facility], [address] [place] [address] [address], [place], [place], [id number], tel:[phone] KIRK LICONA Professional 1-2 week Dry eye follow up (chief complaint) Ocular manifestatio ns of vitamin A deficiencyMe ibomian gland dysfunction (MGD)Dry eye syndrome of bilateral lacrimal glands Fe- 4 Sandi OD Madai. [address] [place] [address] [address], [place], [place], [id number], [place]. tel:[phone] Referring Provider: Jacqui Cary OD, [address], [address]. tel:[phone] Office/outpa tient Visit, [facility], [address] [place] [address] [address], [place], [place], [id number], tel:[phone] DEI Winston 2 month Dry eye followup (chief complaint) Meibomian gland dysfunction (MGD)H/O chalazionDry eye syndrome of bilateral lacrimal glandsOcular manifestatio ns of vitamin A deficiency Oct-0 - 3 Sandi OD Madai. [address] [place] [address] [address], [place], [place], [address], [place]. tel:[phone] Referring Provider: Jacqui Cary OD, [address], [address]. tel:[phone] Office/outpa tient Visit, [facility], [address] [place] [address] [address], [place], [place], [address], [place] tel:[phone] [place] Professional swelling (chief complaint)F ollow up visit (chief complaint) Chalazion right upper eyelidChalaz ion right lower eyelidMeibom faustino gland dysfunction (MGD) Oct-0 9 3 Sandi OD Madai. [address] [place] [address] [address], [place], [place], [address], [place]. tel:[phone] Referring Provider: Jacqui Cary OD, [address], [facility]. tel:[phone] Office/outpa tient Visit, [facility], [address] [place] [address] [address], [place], [place], [address], [place] tel:[phone] [place] Professional bump (chief complaint) Chalazion of right upper eyelidChalaz ion right lower eyelid Nov-2 2 Alverto Belle. [address] [facility], [facility] [place], [address], [place]. tel:[phone] Referring Provider: Jacqui Cary OD, [address], [address]. tel:[phone] Office/outpa tient Visit, [facility], [address] [place] [address] [address], [place], [place], [address], [place] tel:[phone] [place] Professional WIE (chief complaint) Chalazion right lower eyelidMeibom faustino gland dysfunction (MGD) Oct-2 2 Alverto Belle. [address] [facility], [address], [place], [place], [id number], [place]. tel:[phone] Referring Provider: Jacqui Cary OD, [address], [address]. tel:[phone] Office/outpa tient Visit, [facility], [address], [place], [place], [address], [place] tel:[phone] [place] Professional office visit (chief complaint) Chalazion right upper eyelid March- 2 Alverto Belle. [address] [facility], [address], [place], [place], [address], [place]. tel:[phone] Referring Provider: Jacqui Cary OD, [address], [place], [address]. tel:[phone] Office/outpa tient Visit, [facility], [address], [place], [place], [address], [place] tel:[phone] [place] Professional evaluation (chief complaint) Chalazion of right upper eyelid Feb- 2 Alverto Belle. [address] [facility], [address], [place], [place], [address], [place]. tel:[phone] Referring Provider: Jacqui Cary OD, [address], [address]. tel:[phone] [facility], [address], [place], [place], [address], [place] tel:[phone] [place] Professional 2 week f/u (chief complaint) Chalazion of right upper eyelid Jan- 2 Alverto Belle. [address] [facility], [address], [place], [place], [address], [place]. tel:[phone] Referring Provider: Jacqui Cary OD, [address], [address]. tel:[phone] Office/outpa tient Visit, [facility], [address], [place], [place], [address], [place] tel:[phone] SEC Reji [place] Professional evaluation (chief complaint) Chalazion of right upper eyelidPresep oumou cellulitis 2 [place] Yoshi. [address] [facility], [address], [place], [place], [address], [place]. tel:[phone] Referring Provider: Jacqui Cary , [address], [address]. tel:[phone] Family History Family Member Type Diagnosis Age [...] Disease Payers Payer name Insurance type Covered constitution party ID Authoriza miguel angel(s) Christopher [id number] Social History Type Description Quantity Date Captured [...] begin taking Xcellent A 3000mcg daily and Coalfield 3 1500 mg daily. Pt tried the vitamins but the A vitamin did not absorb based on his labs, pt spoke to T[facility] about this via phone call and it is noted in his chart. Pt has been taking Coalfield 3 daily, pt using moist pads for his eyes and they seem to help. Pt states the doctor [facility] referred him to in [facility] has not called him to schedule still. [...]
[2025-02-09] MEDS: LACTATED RINGERS 1,000 ML 30 ML IV CONT ×3 (08:40→13:44)
[2025-02-09] MEDS: EPINEPHrine HCL INJ 1 MG/ML AMPUL 3 MG IRRIGATION (08:44)
[2025-02-09] MEDS: ACETAMINOPHEN 500 MG TABLET 1000 MG PO (08:45)
[2025-02-09] MEDS: KETOROLAC 15 MG/ML VIAL (*BKC) IV PUSH (08:46)
--- NOTE | 2025-02-09 10:02 | WPDANESEPPF ---
Anes - Initial Pre Proc Eval Procedure: Operation Date: 02/09/25 10:30 Proposed Procedures p Right Shoulder Arthroscopy, with Subacromial Decompression, Proceed as Indicated - Juan David Frank MD Date/Time: 02/09/25 10:02 Surgeon: Juan David Frank MD Pre Op Diagnosis: right shoulder impingement Patient Data Age: 40 Gender: M Height: 1.75 m Weight: 87.7 kg Last Vital Signs Temp 97 F L 02/09/25 08:22 Pulse 73 02/09/25 08:22 Resp 16 02/09/25 08:22 BP 119/68 02/09/25 08:22 Pulse Ox 99 02/09/25 08:22 O2 Del Method Room Air 02/09/25 08:22 Allergies Allergy/AdvReac Type Severity Reaction Status Date / Time menthol Allergy Unknown Hives Verified 02/09/25 08:31 Home Medications ?Medication ?Instructions ?Recorded ?Confirmed ?Type aheuxqwh-wqq-giinn acid 200 1 tablet PO DAILY 09/19/24 02/01/25 History mcg-vit K1 60 mcg-lycopene 600 mcg tablet (Men's Multivitamin) omeprazole 20 mg capsule,delayed 20 mg PO DAILY PRN gastric reflux 12/26/24 02/01/25 History release aspirin 81 mg tablet,delayed 81 mg PO BID 14 days #28 tabs 02/09/25 Rx release hydrocodone 5 mg-acetaminophen 325 1 - 2 tablet PO Q4-6H PRN pain 7 02/09/25 Rx mg tablet days #30 tabs Patient hx anesthesia problems: none Family hx anesthesia problems: none Results Review: All pre-operative results and documents have been reviewed as part of the pre-operative evaluation. [facility], [facility] Past Medical History Medical History Colon polyp Hx MRSA infection Hepatic steatosis GERD (gastroesophageal reflux disease) Surgical History Surgical History History of colonoscopy H/O excision of mass exc skin cyst back 1.5cm 04/14/24 History of tonsillectomy History of incision and drainage right knee Family History Family History Father Skin cancer Acute myocardial infarction Mother Factor V inhibitor disorder Diabetes mellitus Skin cancer Social History Social History Social History: Smoking status: Never smoker Second hand tobacco smoke exposure: No Alcohol intake: never Substance use: never Substance use type: does not use Do You Feel Safe in your Home?: Yes Lack of Transportation: No Lack of Food: Never True Current Housing: I Have Housing Concerned About Future Housing: No Difficulty Paying Gas/Electric Bills: No Difficulty Paying for Meds: No Currently Unemployed: No Education: High School Diploma/GED Difficulty w/ Childcare or Family Care: No Living arrangements: with family Occupation/Education: occupation Gender identity (if verbalized by the patient): Male Sexual Orientation (if Verbalized by the Patient): Straight or Heterosexual Spiritual care concerns: No Anes - Eval Final PreProcedure Day of Procedure 02/09/25 10:02 Patient weight: normal Lungs: normal air movement Airway: Mallampati scale class III Neurological: alert and oriented Last oral intake: >/= 8 hours ASA classification: II Emergent: no Anesthetic plan: proceed Anesthesia type and monitoring: general ETT and standard monitoring Results Review: All pre-operative results and documents have been reviewed as part of the pre-operative evaluation. Pt healthy, factor 5 leiden def and pt states he was not told to start on AC at this time. Informed Consent: The patient's anesthetic plan and its attendant risks and benefits were discussed with the patient/family/POA. Questions were solicited and answers provided to the satisfaction of the patient/family/POA.
--- NOTE | 2025-02-09 10:22 | WPDHPUPDATE1 ---
History and Physical Update Update Date/Time: 02/09/25 10:22 History and Physical has been reviewed, including an updated exam of the patient. There are NO changes in the patient's condition. Risks, benefits, and alternatives have been discussed and questions answered. Patient agrees to proceed with procedure.
[2025-02-09] MEDS: ceFAZolin 2 GM/D5W 50 ML 2 GM/50 ML BAG IVPB (10:29)
[2025-02-09] MEDS: BUPIVACAINE/EPINEPHRINE 0.5% 30 ML VIAL INFILTRATE (11:10)
[2025-02-09] MEDS: fentaNYL CITRATE INJ (*CRX) 100 MCG/2 ML VIAL 25 MCG IV PUSH ×2 (12:32→12:42)
--- NOTE | 2025-02-09 12:48 | P.OP_ITS ---
Procedure Note - Detailed Date of Procedure 02/09/25 Pre-op Diagnosis Right shoulder impingement syndrome Post-op Diagnosis Other (1. Impingement syndrome right shoulder 2. Anterior labral tear right shoulder) Procedure Performed Arthroscopic right shoulder debridement of labrum and subacromial bursa, with subacromial decompression. Surgeon Juan David Frank MD Purchasing Clerk Maria Eugenia Hdz PA-C Anesthesia General Findings Minimal capsulitis without significant contracture. Small tear of the anterior labrum treated with debridement. Minimal fraying of the SLAP area without any definite SLAP tear or instability. Biceps appeared normal as did the rotator cuff. Mild hyperemia of the cuff on the bursal side. External impingement treated with bursectomy and acromioplasty. Description of Procedure Preoperative antibiotics were given. The patient was brought to the operating room. Careful positioning in the beach chair was accomplished. The head neck were carefully positioned. A small bump was placed under the shoulder. The shoulder was prepped and draped in the usual sterile fashion. Examination under anesthesia performed. The shoulder showed no significant stiffness. External rotation was 90?. Elevation appeared normal. No internal rotation contracture. Standard posterior and anterior arthroscopic portals were established. Intra- articular structures appear normal. There was minimal capsular inflammation without evidence of severe contracture. Attention was turned to the subacromial space. A complete bursectomy was performed. The acromion was clearly visualized. The rotator cuff appeared normal. The coracoacromial ligament was released. Careful acromioplasty was performed using the arthroscopic bur. Loose bone fragments were carefully irrigated from the joint. The arthroscopic instruments were removed. The wounds were closed with interrupted 3-0 Monocryl suture followed by Steri-Strips. A sterile dressing was applied with a sling. The patient was extubated and brought to the recovery room in stable condition. There were no complications. Estimated Blood Loss 10 Drains No Packing No Pathology None sent Complications No immediate complications Condition Stable Disposition PACU [facility] Billing Surgery - Charge Forward: Surgery Billing
[2025-02-09] MEDS: ONDANSETRON INJ 4 MG/2 ML VIAL IV PUSH (13:09)
== END 2025-02-09 14:45 | disposition home or self-care (01) ==
PROVIDERS: PCP Family Medicine; Visit Provider Orthopaedic Surgery
PROC: (CPT 29805; principal; 2025-02-09 10:30)
DX: M75.41 Impingement syndrome of right shoulder (principal); M75.81 Other shoulder lesions, right shoulder; M75.01 Adhesive capsulitis of right shoulder; G89.29 Other chronic pain; K21.9 Gastro-esophageal reflux disease without esophagitis; Z79.82 Long term (current) use of aspirin; Z79.891 Long term (current) use of opiate analgesic; Z98.890 Other specified postprocedural states; Z86.0100 Personal history of colon polyps, unspecified; Z84.0 Family history of diseases of the skin and subcutaneous tissue; Z82.49 Family history of ischemic heart disease and other diseases of the circulatory system
CPT/HCPCS: 29826; 29822; A4565; A9270; J0171; J0690; J1100; J1171; J1885; J2003; J2250; J2405; J2704; J3010; J7120

== ENCOUNTER 2025-03-16 10:47 | Outpatient (CLI) | payer OTHER, SELFPAY ==
--- NOTE | ~2025-03-16 | US_ITS ---
Thyroid ultrasound. Clinical History: Neck pain Findings: Real-time sonography of the thyroid gland was performed. The right lobe measures 4.5 x 1.4 x 1.4 cm. The left lobe measures 4.2 x 1.0 x 1.7 cm. The isthmus is 1 mm in AP diameter. No nodule i dentified. Impression: Unremarkable exam.. Reviewed, dictated and finalized at location . Impression: Unremarkable exam..
== END 2025-03-16 10:48 | disposition home or self-care (01) ==
LOC: MICIMG 10:48
PROVIDERS: PCP Family Medicine; Visit Provider Physician Assistant Medical
DX: M54.2 Cervicalgia (principal); R09.89 Other specified symptoms and signs involving the circulatory and respiratory systems
CPT/HCPCS: 76536

== ENCOUNTER 2025-10-31 12:19 | Outpatient (CLI) | payer OTHER, SELFPAY ==
--- NOTE | ~2025-10-31 | XR_ITS ---
EXAM/PROCEDURE: XR sternum min 2V HISTORY: R07.89 - Other chest pain COMPARISON: None available. TECHNIQUE: Sternal x-rays FINDINGS: The sternum appears intact on lateral views. The frontal/oblique view is suboptimal with poor visualization of the sternum. IMPRESSION: No definite sternal fracture or gross abnormality. Exam somewhat limited as above. Reviewed, dictated and finalized at location A. CIATE PARTNER IMPRESSION: No definite sternal fracture or gross abnormality. Exam somewhat limited as abo ve.
--- OUTSIDE RECORDS SUMMARY | 2025-10-31 14:18 | XMS_ITS | Clinical Summary ---
Author Organization [facility] Address [address] [place] [address] Care Team Providers Care Window Covering Sales Consultant Name Role Phone Yoshi Aguilera MD Primary Care Provider [phone] Source Comments [facility],non-owned Affiliates and Associated Physician Practices is amultiple site organization consisting of ambulatory clinics and hospital sitesin [place], [place], [place] and [place]. This disclosure is being madepursuant to the Care Everywhere program and may not contain all information available regarding this patient. Last updated 18.[facility] Allergies Active Allergy Reactions Criticality Noted Date Comments Adhesive Sensitivity Urticaria Medium 06/16/2017 Sunscreen Rash,Itching Medium 12/25/2018 Medications * Be aware that medications may not be up to date on this document. Alwaysverify current medications with the patient. No known medications Active Problems No known active problems Social History Tobacco Use Types Packs/Day Years Used Date Smoking Tobacco: Never Smokeless Tobacco: Never Alcohol Use Standard Drinks/Week Comments No 0 (1 standard drink = 0.6 oz pur e alcohol) Sex and Gender Information Value Date Recorded Sex Assigned at Not on file Legal Sex Male 1:22 PM CDT Gender Identity Not on file Sexual Orientation Not on file Last Filed Vital Signs Vital Sign Reading Time Taken Comments Blood Pressure 104/80 12/25/2018 10:44 AM ICER MACHINE OPERATOR Pulse 59 12/25/2018 10:44 AM ICER MACHINE OPERATOR Temperature 36.5 C (97.7 F) 12/25/2018 10:44 AM ICER MACHINE OPERATOR Respiratory Rate 15 12/25/2018 10:44 AM ICER MACHINE OPERATOR Oxygen Saturation 99% 12/25/2018 10:44 AM ICER MACHINE OPERATOR Inhaled Oxygen Concentration - - Weight 81.6 kg (180 lb) 12/25/2018 10:44 AM ICER MACHINE OPERATOR Height 177.8 cm (5' 10) 12/25/2018 10:44 AM ICER MACHINE OPERATOR Body Mass Index 25.83 12/25/2018 10:44 AM ICER MACHINE OPERATOR Plan of Treatment Health Maintenance Due Date Last Done Comments LIPID TESTING 1983 HIV SCREENING 1998 HEPATITIS C SCREENING 12/28/2000 DTAP/TDAP/TD VACCINES (1 - Tdap) 2002 HEPATITIS B VACCINE (1 of 3 - 19+ 3-dose series) 2002 HPV VACCINE (1 - 3-dose SCDM series) 2010 DEPRESSION SCREENING 11/16/2024 COVID-19 VACCINE (1 - 2024-2 6 season) 2025 INFLUENZA VACCINE (#1) 2025 ZOSTER VACCINE (1 of 2) 2033 HIB [...] patient's age to complete this topic Insurance [facility] * Guarantor: ELMO LARA Account Type Relation to Patient Date of Phone Billing Address Personal/Family [address] [place] [phone] [facility] * Guarantor: MARCOELMO Account Type Relation to Patient Date of Phone Billing Address Personal/Family [address] [place] [address] [facility] * Guarantor: ELMO LARA Account Type Relation to Patient Date of Phone Billing Address Personal/Family [address] [place] [address] [facility] Care Teams Window Covering Sales Consultant Relationship Specialty Start Date End Date Yoshi Aguilera MD [address] [id number] PCP - General Family Medicine 06/16/17
--- OUTSIDE RECORDS SUMMARY | 2025-10-31 14:18 | XMS_ITS | Clinical Summary ---
Author Organization [facility] MD Address [address] [place] [address] Care Team Providers Care Laboratory Asst Name Role Phone Yoshi Aguilera MD Primary Care Provider [phone] Allergies Active Allergy Reactions Criticality Noted Date Comments Adhesive Tape-Silicones Rash Medium 06/16/2017 Sunscreen Rash,Itching Medium 12/25/2018 Medications omeprazole (PriLOSEC) 20 mg Capsule, Delayed Release(E.C.)Ind ications:Gastroe sophageal reflux disease with esophagitis TAKE 1 CAPSULE DAILY 90 Capsule 1 01/11/2024 Active Active Problems Problem Noted Date Diagnosed Date Lymphadenopathy 05/30/2020 Localized swelling, mass or lump of neck 020 Gastroesophageal reflux disease with esophagitis 05/02/2020 Immunizations Immunization Administration Dates Next Due (ADACEL/BOOSTRIX)(10 [...] Comments Blood Pressure 102/74 01/18/2024 9:57 AM FIELD MAP EDITOR Pulse 66 11/03/2022 10:21 AM FIELD MAP EDITOR Temperature 35.1 C (95.1 F) 11/03/2022 10:21 AM FIELD MAP EDITOR Respiratory Rate 16 11/03/2022 10:21 AM FIELD MAP EDITOR Oxygen Saturation 98% 11/03/2022 10:21 AM FIELD MAP EDITOR Inhaled Oxygen Concentration - - Weight 79.4 kg (175 lb) 01/18/2024 9:57 AM FIELD MAP EDITOR Height 175.3 cm (5' 9) 01/18/2024 9:57 AM FIELD MAP EDITOR Body Mass Index 25.84 01/18/2024 9:57 AM FIELD MAP EDITOR Plan of Treatment Health Maintenance Due Date Last Done Comments HEPATITIS B VACCINES (1 of 3 - 19+ 3-dose series) 2002 INFLUENZA VACCINE (#1) 2025 4, 08/21/2021, 08/15/2020, Additional history exists DTAP/TDAP/TD VACCINES (2 - T d or Tdap) 11/16/2026 11/16/2016 HPV VACCINES (No Doses Required) Completed Insurance [employer]ESS Advance Directives For more information, please contact: [phone] * Full Code (Latest Code Status on File) Date Activated Date Inactivated Comments 06/20/2020 2:08 PM 06/20/2020 6:18 PM Care Teams Laboratory Asst Relationship Specialty Start Date End Date Yoshi Aguilera MD [address] [address] PCP - General Family Practice 03/16/23
--- OUTSIDE RECORDS SUMMARY | 2025-10-31 14:18 | XMS_ITS | Clinical Summary ---
Author Organization [facility] Address [address] [place] [id number] Care Team Providers Care Manual Writer Name Role Phone Unavailable Primary Care Provider [...] 3 - 19+ 3-dose series) 2002 HPV Vaccines (1 - 3-dose SCD M series) 2010 COVID-19 Vaccine (2024-2 6 season) 2025 Influenza Adult (#1) 2025 Hepatitis A Vaccines Aged Out No long er eligible based on patient's age to complete this topic Meningococcal B Vaccine Aged Out No l onger eligible based on patient's age to complete this topic Meningococcal Vaccine Aged Out No cookie vikram eligible based on patient's age to complete this topic Pneumococcal Vaccine: Pediat rics (0 to 5 Years) and At-Risk Patients (6 to 49 Years) Aged Out No longer eligible b ased on patient's age to complete this topic RSV Immunizations Under 20 Months Aged Out No longer eligible based on patient's age to complete this topic
== END 2025-10-31 12:20 | disposition home or self-care (01) ==
PROVIDERS: PCP Family Medicine; Visit Provider Physician Assistant
DX: R07.89 Other chest pain (principal)
CPT/HCPCS: 71120